=== PATIENT | male | born 1985 | race American Indian/Alaskan Native ===

== ENCOUNTER 2017-11-29 14:31 | Inpatient (IN) | payer OTHER ==
[2017-11-29] MEDS ORDERED: ASPIRIN PO ONE (14:46)
[2017-11-29 15:54] LABS: BUN/Creatinine Ratio 10; Blood Urea Nitrogen 7 mg/dL (9-20); Calcium 9.4 mg/dL (8.4-10.2); Hemolysis Index 0
[2017-11-29 16:00] LABS: Basophils % (Auto) 0.2 % (0.0-1.8); Eosinophils # (Auto) 0.2 K/mm3 (0.0-0.4); Eosinophils % (Auto) 2.3 % (0.0-4.3); Hematocrit 33.4 % (35.5-45.6); Hemoglobin 10.2 gm/dl (11.8-15.2); Lymphocytes # (Auto) 2.4 K/mm3 (1.2-5.4); Lymphocytes % (Auto) 36.3 % (13.4-35.0); Mean Corpuscular HGB Conc 31 % (32-34); Mean Corpuscular Volume 75 fl (84-94); Monocytes # (Auto) 0.5 K/mm3 (0.0-0.8); Monocytes % (Auto) 7.6 % (0.0-7.3); Platelet Count 298 K/mm3 (140-440); Red Blood Count 4.45 M/mm3 (3.65-5.03); Red Cell Distribution Width 17.6 % (13.2-15.2)
[2017-11-29 16:03] LABS: Mean Corpuscular Hemoglobin 23 pg (28-32)
--- NOTE | 2017-11-29 16:44 | Emergency Department Report ---
ED Chest Pain HPI - General Chief Complaint: Chest Pain Stated Complaint: CHEST PAIN, DIZZINESS ON &OFF Time Seen by Provider: 11/29/17 16:11 Source: patient Mode of arrival: Ambulatory Limitations: No Limitations - History of Present Illness Initial Comments: 32-year-old male presents to the emergency department with complaint of a squeezing pain to the left side of the chest has been going on since about 2:30 this morning. He went to sleep trying to sleep off the discomfort but woke up with it as well. It started radiating to the left arm which is when he was brought in. It is associated with some shortness of breath but he denies any fever, nausea, vomiting or diaphoresis. Per the patient, he has a history of a "mild heart attack." He is not on any medications. He otherwise has a past medical history of anxiety. He denies any tobacco or illicit drug use or abuse. No recent travel or sick contacts at home. - Related Data Home Medications Medication Instructions Recorded Confirmed Last Taken No Known Home Medications [No 08/22/14 11/29/17 Unknown Reported Home Medications] Allergies Allergy/AdvReac Type Severity Reaction Status Date / Time No Known Allergies Allergy Verified 03/12/16 14:09 Heart Score - HEART Score History: Moderately suspicious EKG: Normal Age: < 45 Risk factors: 1-2 risk factors Troponin: < normal limit HEART Score: 2 - Critical Actions Critical Actions: 0-3 pts:0.9-1.7%risk of adverse cardiac event.Candidate for discharge ED Review of Systems ROS: Stated complaint: CHEST PAIN, DIZZINESS ON &OFF Other details as noted in HPI Comment: All other systems reviewed and negative Constitutional: denies: chills, fever Eyes: denies: eye pain, eye discharge, vision change ENT: denies: ear pain, throat pain Respiratory: shortness of breath. denies: cough Cardiovascular: chest pain. denies: palpitations Gastrointestinal: denies: abdominal pain, nausea, diarrhea Genitourinary: denies: urgency, dysuria Musculoskeletal: denies: back pain, joint swelling Skin: denies: rash, lesions Neurological: denies: headache, weakness, paresthesias ED Past Medical Hx - Past Medical History Previous Medical History?: Yes Hx Psychiatric Treatment: Yes (ANXIETY) Additional medical history: MORBID OBESITY, Hx of AZ - Surgical History Past Surgical History?: No Additional Surgical History: Tonsillectomy - Social History Smoking Status: Never Smoker Substance Use Type: None - Medications Home Medications: Home Medications Medication Instructions Recorded Confirmed Last Taken Type No Known Home Medications [No 08/22/14 11/29/17 Unknown History Reported Home Medications] ED Physical Exam - General Limitations: No Limitations - Other Other exam information: GENERAL: The patient is well-developed well-nourished. HENT: Normocephalic. Atraumatic. Patient has moist mucous membranes. EYES: Extraocular motions are intact. Pupils equal reactive to light bilaterally. NECK: Supple. Trachea is midline. CHEST/LUNGS: Clear to auscultation. There is no respiratory distress noted. HEART/CARDIOVASCULAR: Regular. There is no tachycardia. There is no murmur. ABDOMEN: Abdomen is soft, nontender. Patient has normal bowel sounds. Morbidly obese habitus. SKIN: Skin is warm and dry. NEURO: The patient is awake, alert, and oriented. The patient is cooperative. The patient has no focal neurologic deficits. The patient has normal speech. MUSCULOSKELETAL: There is no tenderness or deformity. There is no limitation range of motion. There is no evidence of acute injury. ED Course Vital Signs 11/29/17 11/29/17 11/29/17 14:43 16:10 16:16 Temperature 98.2 F Pulse Rate 88 92 H 94 H Respiratory 18 13 Rate Blood Pressure 128/77 116/64 Blood Pressure [Left] O2 Sat by Pulse 98 99 Oximetry 11/29/17 11/29/17 11/29/17 16:30 16:46 17:00 Temperature Pulse Rate 93 H 87 79 Respiratory 20 22 15 Rate Blood Pressure 116/64 116/64 128/59 Blood Pressure [Left] O2 Sat by Pulse 96 94 92 Oximetry 11/29/17 11/29/17 11/29/17 17:16 17:30 17:46 Temperature Pulse Rate 71 Respiratory 12 12 13 Rate Blood Pressure 128/59 128/59 128/59 Blood Pressure [Left] O2 Sat by Pulse 96 97 Oximetry 11/29/17 11/29/17 11/29/17 18:00 18:28 18:30 Temperature Pulse Rate 77 87 85 Respiratory 14 17 17 Rate Blood Pressure 116/59 116/59 116/59 Blood Pressure [Left] O2 Sat by Pulse 85 88 98 Oximetry 07/11/29/17 11/29/17 18:46 19:00 19:16 Temperature Pulse Rate 82 78 98 H Respiratory 17 16 19 Rate Blood Pressure 116/59 116/59 116/59 Blood Pressure [Left] O2 Sat by Pulse 97 90 97 Oximetry 11/29/17 11/29/17 11/29/17 19:30 19:46 20:00 Temperature Pulse Rate Respiratory Rate Blood Pressure 116/59 131/100 131/100 Blood Pressure [Left] O2 Sat by Pulse 98 95 81 L Oximetry 11/29/17 11/29/17 11/29/17 20:16 20:30 20:46 Temperature Pulse Rate Respiratory Rate Blood Pressure 131/100 131/100 131/100 Blood Pressure [Left] O2 Sat by Pulse 87 88 94 Oximetry 11/29/17 11/29/17 11/29/17 21:00 21:16 21:36 Temperature Pulse Rate Respiratory Rate Blood Pressure 131/100 131/100 131/100 Blood Pressure [Left] O2 Sat by Pulse 82 L 92 97 Oximetry 11/29/17 11/29/17 11/29/17 21:46 22:00 22:16 Temperature Pulse Rate Respiratory Rate Blood Pressure 131/100 131/100 131/100 Blood Pressure [Left] O2 Sat by Pulse 76 L 100 94 Oximetry 11/29/17 11/29/17 11/29/17 22:30 22:46 23:00 Temperature Pulse Rate Respiratory Rate Blood Pressure 131/100 131/100 131/100 Blood Pressure [Left] O2 Sat by Pulse 100 100 97 Oximetry 11/29/17 11/30/17 23:16 00:08 Temperature Pulse Rate 97 H Respiratory 20 Rate Blood Pressure 131/100 Blood Pressure 140/92 [Left] O2 Sat by Pulse 100 99 Oximetry ANKITA score - Ankita Score Age > 65: (0) No 3 or more CAD Risk Factors: (0) No 2 or more Angina events in past 24 hrs: (1) Yes Known CAD with more than 50% Stenosis: (0) No Elevated Cardiac Markers: (0) No ST Deviation Greater than 0.5mm: (0) No ED Medical Decision Making - Lab Data Result diagrams: 11/29/17 15:18 11/29/17 15:18 - EKG Data -: EKG Interpreted by [place] EKG shows normal: sinus rhythm, axis, intervals, QRS complexes, ST-T waves Rate: normal - EKG Data When compared to previous EKG there are: previous EKG unavailable Interpretation: normal EKG, unchanged when compared t (08/22/14) - Radiology Data Radiology results: report reviewed, image reviewed interpreted by me: Chest x-ray does not show any acute process. There are no pleural effusions, obvious pneumonia and there is no pneumothorax. EXAM: CT ANGIO CHEST HISTORY: CP, elevated dimer TECHNIQUE: Spiral CTA of the chest after the uneventful administration of IV contrast. Multiplanar reformations. 100 mL Omnipaque IV. PRIORS: None. FINDINGS: Chest: Very small and eccentric focus of incomplete enhancement or possible filling defect noted in left interlobar pulmonary artery (series 2: 61-62), nonspecific. Remainder of main and bilateral proximal pulmonary arteries are normally opacified without endoluminal filling defects. No apparent aneurysm, pseudoaneurysm or aortic dissection. No significant mediastinal or hilar lymph node enlargement. Prominent or mildly enlarged lymph nodes in left axillary region may be reactive. Lungs show no discrete parenchymal mass, focal consolidation or pleural effusions. No apparent pneumothorax. Gallstone noted without significant pericholecystic fluid collection. Remainder of visualized upper abdomen grossly unremarkable. IMPRESSION: 1. Very small focus of incomplete enhancement or possible filling defect in the left interlobar pulmonary artery may be artifactual or represent scarring, although small pulmonary embolus not completely excluded. Clinical correlation and followup may be warranted. 2. No other evidence of large vessel or central pulmonary emboli. No acute consolidation. 3. Cholelithiasis. Transcribed By: [facility] Dictated By: KOREY ALLRED MD Electronically Authenticated By: KOREY ALLRED MD Signed Date/Time: 11/29/172004 - Medical Decision Making Patient presents with some chest pain, 9 out of 10 to start. The first 2 troponins negative. Patient had a slightly elevated equivocal d-dimer of [address] angiography of the chest was done. It shows a very small focus towards the left interlobar pulmonary artery that could be scarring versus PE versus atelectasis but was seen by the radiologist on multiple cuts. Patient was given some pain medication and has chest pain only came down to a 7 out of 10. He allegedly has some history of a prior "mild heart attack." The patient the patient will be admitted to the hospital for further evaluation and treatment was accepted for admission by the hospitalist, Dr. Cronin. - Differential Diagnosis PE, AZ, dysrhythmia, costochondritis, GERD Critical Care Time: No Critical care attestation.: If time is entered above; I have spent that time in minutes in the direct care of this critically ill patient, excluding procedure time. ED Disposition Clinical Impression: Obstructive sleep apnea Pulmonary embolism Qualifiers: Pulmonary embolism type: other Chronicity: acute Acute cor pulmonale presence: without acute cor pulmonale Qualified Code(s): I26.99 - Other pulmonary embolism without acute cor pulmonale Chest pain Qualifiers: Chest pain type: unspecified Qualified Code(s): R07.9 - Chest pain, unspecified Disposition: OP ADMIT IP TO THIS HOSP Is pt being admited?: Yes Condition: Fair Time of Disposition: 00:18
[2017-11-29] MEDS ORDERED: NORCO 5/325 PO ONE (16:50)
--- NOTE | 2017-11-29 18:04 | XRay Report ---
FINAL REPORT EXAM: XR CHEST 1V AP HISTORY: CP TECHNIQUE: Single, portable chest x-ray. PRIORS: None. FINDINGS: Patient rotated to the right. Cardiac and mediastinal silhouette within normal limits. Lungs are hypoinflated, with patchy bibasilar opacities. No other focal consolidation or apparent pneumothorax. Bony thorax grossly unremarkable. IMPRESSION: 1. Hypoinflation and possible bibasilar atelectasis versus mild infiltrates or postinflammatory change of uncertain etiology or chronicity. Correlate clinically.
[2017-11-29] MEDS ORDERED: ASPIRIN ONE (18:36)
--- NOTE | 2017-11-29 20:09 | Cat Scan Report ---
FINAL REPORT EXAM: CT ANGIO CHEST HISTORY: CP, elevated dimer TECHNIQUE: Spiral CTA of the chest after the uneventful administration of IV contrast. Multiplanar reformations. 100 mL Omnipaque IV. PRIORS: None. FINDINGS: Chest: Very small and eccentric focus of incomplete enhancement or possible filling defect noted in left interlobar pulmonary artery (series 2: 61-62), nonspecific. Remainder of main and bilateral proximal pulmonary arteries are normally opacified without endoluminal filling defects. No apparent aneurysm, pseudoaneurysm or aortic dissection. No significant mediastinal or hilar lymph node enlargement. Prominent or mildly enlarged lymph nodes in left axillary region may be reactive. Lungs show no discrete parenchymal mass, focal consolidation or pleural effusions. No apparent pneumothorax. Gallstone noted without significant pericholecystic fluid collection. Remainder of visualized upper abdomen grossly unremarkable. IMPRESSION: 1. Very small focus of incomplete enhancement or possible filling defect in the left interlobar pulmonary artery may be artifactual or represent scarring, although small pulmonary embolus not completely excluded. Clinical correlation and followup may be warranted. 2. No other evidence of large vessel or central pulmonary emboli. No acute consolidation. 3. Cholelithiasis.
[2017-11-29] MEDS ORDERED: ELIQUIS PO ONE (20:12)
[2017-11-29] MEDS ORDERED: PROVENTIL IH PRN (22:57)
[2017-11-29] MEDS ORDERED: ZOFRAN IV PRN (22:57)
[2017-11-29] MEDS ORDERED: SODIUM CHLORIDE FLUSH SYRINGE 10 ML IV PRN (22:57)
[2017-11-29] MEDS ORDERED: TYLENOL PO PRN (22:57)
--- NOTE | 2017-11-29 23:00 | History and Physical Report ---
History of Present Illness Date of examination: 11/29/17 History of present illness: 32-year-old man with a history of obesity causing emergency room complaining of chest pain located in the left chest which she described as a squeezing pain that started this morning. Pain is minimal and nature every 5 minutes , intensity 6/10, no radiation, he cannot identify exacerbating or relieving factors. Admits to recent travel to [place] one week ago. No nausea vomiting, diaphoresis, shortness of breath Review of systems Constitutional: no weight loss, chills, fever Ears, eyes, nose, mouth and throat: no nasal congestion, no nasal discharge, no sinus pressure, no vision change, no red eye. Neck: No neck pain or rigidity. Cardiovascular: no palpitations Respiratory: no cough, shortness of breath Gastrointestinal: no abdominal pain hematochezia Genitourinary : no frequency , no hematuria Musculoskeletal: no joint swelling or muscle ache Integumentary: no rash, no pruritis Neurological: no parathesias, no numbness, no focal weakness Endocrine: no cold or heat intolerance, no polyuria or polydipsia Hematologic/Lymphatic: no easy bruising, no easy bleeding, no gland swelling Allergic/Immunologic: no urticaria, no angioedema. PAST MEDICAL HISTORY: None PAST SURGICAL HISTORY: None SOCIAL HISTORY: No alcohol, no drugs, tobacco FAMILY HISTORY: Hypertension Medications and Allergies Allergies Allergy/AdvReac Type Severity Reaction Status Date / Time No Known Allergies Allergy Verified 03/12/16 14:09 Home Medications Medication Instructions Recorded Confirmed Last Taken Type No Known Home Medications [No 08/22/14 11/29/17 Unknown History Reported Home Medications] Exam - Physical Exam Narrative exam: Gen. appearance: Patient lying in bed, no apparent distress HEENT: Normocephalic, atraumatic, pupils equally round and reactive to light, extraocular movement intact, and no sclericterus,. No JVD or thyromegaly or nodule,neck supple, no carotid bruit ,mucous membranes moist, no exudate or erythema Heart: S1, S2, regular rate and rhythm Lungs: Clear to auscultation bilaterally, breathing comfortable Abdomen: Positive bowel sounds, non tenderess , nondistended, no organomegaly Extremity: No edema, cyanosis, clubbing Skin: No rash, nodules, warm, dry Neuro: Oriented 3, cranial nerves II-12 intact, speech is fluent, motor and sensory intact - Constitutional Vitals: Temp Pulse Resp BP Pulse Ox 98.2 F 98 H 19 116/59 98 11/29/17 14:43 11/29/17 19:16 11/29/17 19:16 11/29/17 19:30 11/29/17 19:30 Results - Labs CBC & Chem 7: 12/01/17 01:10 11/30/17 04:50 Labs: Abnormal lab results 11/29/17 11/29/17 11/29/17 Range/Units 15:18 15:18 16:32 Hgb 10.2 L (11.8-15.2) gm/dl Hct 33.4 L (35.5-45.6) % MCV 75 L (84-94) fl MCH 23 L (28-32) pg MCHC 31 L (32-34) % RDW 17.6 H (13.2-15.2) % Lymph % (Auto) 36.3 H (13.4-35.0) % [place] % (Auto) 7.6 H (0.0-7.3) % D-Dimer 272.05 H (0-234) ng/mlDDU BUN 7 L (9-20) mg/dL Creatinine 0.7 L (0.8-1.5) mg/dL Glucose 133 H (75-100) mg/dL - Imaging and Cardiology Chest x-ray: report reviewed CT scan - chest: report reviewed Assessment and Plan Assessment Acute pulmonary emboli Obesity Plan Admit to medicine Patient was started on Eliquis Check Doppler of the lower extremity CPAP at night, patient with clinical diagnosis of sleep apnea DVT prophylaxis
[2017-11-30 05:26] LABS: Basophils % (Auto) 0.3 % (0.0-1.8); Eosinophils # (Auto) 0.2 K/mm3 (0.0-0.4); Eosinophils % (Auto) 2.2 % (0.0-4.3); Hematocrit 32.3 % (35.5-45.6); Hemoglobin 9.9 gm/dl (11.8-15.2); Lymphocytes # (Auto) 2.7 K/mm3 (1.2-5.4); Lymphocytes % (Auto) 36.9 % (13.4-35.0); Mean Corpuscular HGB Conc 31 % (32-34); Mean Corpuscular Volume 75 fl (84-94); Monocytes # (Auto) 0.6 K/mm3 (0.0-0.8); Monocytes % (Auto) 7.6 % (0.0-7.3); Platelet Count 271 K/mm3 (140-440); Red Blood Count 4.33 M/mm3 (3.65-5.03); Red Cell Distribution Width 17.3 % (13.2-15.2)
[2017-11-30 05:39] LABS: BUN/Creatinine Ratio 12; Blood Urea Nitrogen 6 mg/dL (9-20); Calcium 8.7 mg/dL (8.4-10.2); Hemolysis Index 0
[2017-11-30 05:59] LABS: Mean Corpuscular Hemoglobin 23 pg (28-32)
--- NOTE | 2017-11-30 08:19 | Progress Note ---
Assessment and Plan Assessment and plan: Assessment Acute Pulm Embolism Severe Obesity 2/2 poor food choices Atypical Right sided chest pain Tobacco use disorder Suspect TONIA/OHS Anemia chronic Hyperglycemia r/o DM II Full code status Signs of Metabolic syndrome Plan change to Eliquis 10mg BID x 7 days then 5mg BID after SW to assist with Eliquis Counseled weight loss, diet modification A1c in am Pulm consult and eval Outpt Sleep study and if high, wiil need metformin, dm educator Cover Remover consult if not already done bleeding precautions at all times am labs d/w pt extensively Further pt mgt per hospital course Disposition Plan: pulm eval, nutrition eval, then discharge in 1 day Total Time Spent with Patient (Minutes): More than 35 mins spent History Interval history: Admitted with Pulm Embolism. Pt seen and exam. Lives mostly a sedentary lifestyle Denies h/o PE or DVT Denies any more change pains. Eliquis has been changed to 10mg PO BID x 7 days and then decrease to 5mg BID Pt has no improvement. Will get SW to assist with the Eliquis program/ Coupon Risk of bleeding while on Eliquis d/w pt extensively, and pt advised to report any such bleeding. Pt was AO x 3 and voiced understanding to d/w him. Counseled extensively about need for weight loss, better diet choices etc Hospitalist Physical - Constitutional Vitals: Temp Pulse Resp BP Pulse Ox 98.2 F 97 H 20 140/92 99 11/29/17 14:43 11/30/17 00:08 11/30/17 00:08 11/30/17 00:08 11/30/17 00:08 General appearance: Present: no acute distress, obese, other - EENT Eyes: Present: PERRL, EOM intact ENT: hearing intact, clear oral mucosa, poor dentition - Neck Neck: Present: supple, normal ROM - Respiratory Respiratory: bilateral: CTA, negative: diminished (due to body habitus), rales, rhonchi, wheezing - Cardiovascular Rhythm: regular Heart Sounds: Present: S1 & S2 - Extremities Extremities: pulses intact, pulses symmetrical, normal temperature Extremity abnormal: edema - Abdominal General gastrointestinal: soft, non-distended, normal bowel sounds, other (obese ) - Integumentary Integumentary: Present: clear, warm, dry - Psychiatric Psychiatric: appropriate mood/affect, intact judgment & insight, cooperative - Neurologic Neurologic: CNII-XII intact, moves all extremities - Allied Health Allied health notes reviewed: nursing Results - Labs CBC & Chem 7: 11/30/17 04:50 11/30/17 04:50 Labs: Laboratory Last Values WBC 7.4 K/mm3 (4.5-11.0) 11/30/17 04:50 RBC 4.33 M/mm3 (3.65-5.03) 11/30/17 04:50 Hgb 9.9 gm/dl (11.8-15.2) L 11/30/17 04:50 Hct 32.3 % (35.5-45.6) L 11/30/17 04:50 MCV 75 fl (84-94) L 11/30/17 04:50 MCH 23 pg (28-32) L 11/30/17 04:50 MCHC 31 % (32-34) L 11/30/17 04:50 RDW 17.3 % (13.2-15.2) H 11/30/17 04:50 Plt Count 271 K/mm3 (140-440) 11/30/17 04:50 Lymph % (Auto) 36.9 % (13.4-35.0) H 11/30/17 04:50 [place] % (Auto) 7.6 % (0.0-7.3) H 11/30/17 04:50 Eos % (Auto) 2.2 % (0.0-4.3) 11/30/17 04:50 Baso % (Auto) 0.3 % (0.0-1.8) 11/30/17 04:50 Lymph # 2.7 K/mm3 (1.2-5.4) 11/30/17 04:50 [place] # 0.6 K/mm3 (0.0-0.8) 11/30/17 04:50 Eos # 0.2 K/mm3 (0.0-0.4) 11/30/17 04:50 Baso # 0.0 K/mm3 (0.0-0.1) 11/30/17 04:50 Seg Neutrophils % 53.0 % (40.0-70.0) 11/30/17 04:50 Seg Neutrophils # 3.9 K/mm3 (1.8-7.7) 11/30/17 04:50 D-Dimer 272.05 ng/mlDDU (0-234) H 11/29/17 16:32 Sodium 141 mmol/L (137-145) 11/30/17 04:50 Potassium 3.7 mmol/L (3.6-5.0) 11/30/17 04:50 Chloride 102.0 mmol/L (98-107) 11/30/17 04:50 Carbon Dioxide 30 mmol/L (22-30) 11/30/17 04:50 Anion Gap 13 mmol/L 11/30/17 04:50 BUN 6 mg/dL (9-20) L 11/30/17 04:50 Creatinine 0.5 mg/dL (0.8-1.5) L 11/30/17 04:50 Estimated GFR > 60 ml/min 11/30/17 04:50 BUN/Creatinine Ratio 12 % 11/30/17 04:50 Glucose 196 mg/dL (75-100) H 11/30/17 04:50 Calcium 8.7 mg/dL (8.4-10.2) 11/30/17 04:50 Troponin T < 0.010 ng/mL (0.00-0.029) 11/29/17 20:44 NT-Pro-B Natriuret Pep 50.79 pg/mL (0-450) 11/29/17 16:32 - Imaging and Cardiology Chest x-ray: report reviewed CT scan - chest: report reviewed Venous US: report reviewed
[2017-11-30] MEDS ORDERED: ELIQUIS PO SCH (10:00)
[2017-11-30] MEDS: SODIUM CHLORIDE FLUSH SYRINGE 10 ML IV SCH ×2 (12:08→22:50)
[2017-11-30] MEDS: ELIQUIS PO SCH ×2 (12:08→22:50)
[2017-12-01] MEDS ORDERED: DEEP SEA NS PRN (02:50)
[2017-12-01 03:32] LABS: Hemoglobin 9.8 gm/dl (11.8-15.2); Mean Corpuscular HGB Conc 31 % (32-34); Mean Corpuscular Volume 75 fl (84-94); Platelet Count 274 K/mm3 (140-440); Red Blood Count 4.28 M/mm3 (3.65-5.03); Red Cell Distribution Width 17.6 % (13.2-15.2)
[2017-12-01 03:34] LABS: Mean Corpuscular Hemoglobin 23 pg (28-32)
--- NOTE | 2017-12-01 10:22 | Consultation ---
History of Present Illness Consult date: 12/01/17 Requesting physician: LUCIANO LUJAN Reason for consult: pulmonary embolism (Equivocal) History of present illness: PULMONARY/CCM CONSULT NOTE (Full dictation # [id number]) Please see dictated notes for full details Medications and Allergies Allergies Allergy/AdvReac Type Severity Reaction Status Date / Time No Known Allergies Allergy Verified 03/12/16 14:09 Home Medications Medication Instructions Recorded Confirmed Last Taken Type No Known Home Medications [No 08/22/14 11/29/17 Unknown History Reported Home Medications] Active Meds: Active Medications Acetaminophen (Tylenol) 650 mg PO Q4H PRN PRN Reason: Pain MILD(1-3)/Fever >100.5/NELSON Last Admin: 12/01/17 02:36 Dose: 650 mg Albuterol (Proventil) 2.5 mg IH Q3HRT PRN PRN Reason: Shortness Of Breath Apixaban (Eliquis) 10 mg PO Q12HR [id number]; Protocol Last Admin: 11/30/17 22:50 Dose: 10 mg Ondansetron HCl (Zofran) 4 mg IV Q8H PRN PRN Reason: Nausea And Vomiting Sodium Chloride (Sodium Chloride Flush Syringe 10 Ml) 10 ml IV BID KWADWO Last Admin: 11/30/17 22:50 Dose: 10 ml Sodium Chloride (Sodium Chloride Flush Syringe 10 Ml) 10 ml IV PRN PRN PRN Reason: LINE FLUSH Sodium Chloride ([place]) 2 spray NS PRN PRN PRN Reason: Dry Nasal Passages Physical Examination Vital signs: Vital Signs Temp Pulse BP Pulse Ox 98.2 F 88 128/77 98 11/29/17 14:43 11/29/17 14:43 11/29/17 14:43 11/29/17 14:43 Results - Laboratory Findings CBC and BMP: 12/05/17 06:20 12/05/17 06:20 PT/INR, D-dimer D-Dimer 272.05 ng/mlDDU (0-234) H 11/29/17 16:32 Abnormal lab findings: Abnormal Labs 11/29/17 11/29/17 11/29/17 15:18 15:18 16:32 Hgb 10.2 L Hct 33.4 L MCV 75 L MCH 23 L MCHC 31 L RDW 17.6 H Lymph % (Auto) 36.3 H [place] % (Auto) 7.6 H D-Dimer 272.05 H BUN 7 L Creatinine 0.7 L Glucose 133 H 11/30/17 11/30/17 12/01/17 04:50 04:50 01:10 Hgb 9.9 L 9.8 L Hct 32.3 L 32.0 L MCV 75 L 75 L MCH 23 L 23 L MCHC 31 L 31 L RDW 17.3 H 17.6 H Lymph % (Auto) 36.9 H [place] % (Auto) 7.6 H D-Dimer BUN 6 L Creatinine 0.5 L Glucose 196 H
[2017-12-01] MEDS: ELIQUIS PO SCH ×2 (10:23→22:32)
[2017-12-01] MEDS: SODIUM CHLORIDE FLUSH SYRINGE 10 ML IV SCH ×2 (10:25→22:33)
[2017-12-01] MEDS ORDERED: MORPHINE IV PRN (12:12)
--- NOTE | 2017-12-01 12:53 | Progress Note ---
Assessment and Plan Assessment and plan: Suspected Acute Pulm Embolism -cont eliquix -CTA chest suspicious for PE -Patient unable to get VQ scan due to body habitus -Pulmonology following Atypical Right sided chest pain, probably secondary to the PE -serial troponin levels negative Dyspnea on exertion -cont PRN neb tx -will need home oxygen evaluation Morbid obesity with BMI of 55.8 -Weight loss recommended Tobacco abuse -Counseled on cessation Suspected TONIA/OHS -Patient will need outpatient sleep study -Continue CPAP at night Anemia, chronic -H&H stable Hyperglycemia r/o DM II -A1c pending Disposition: Discharge patient when clinically stable History Interval history: Patient has sob at rest and with mild exertion. Hospitalist Physical - Constitutional Vitals: Temp Pulse Resp BP Pulse Ox 98.4 F 81 22 148/75 95 12/01/17 08:41 12/01/17 08:41 12/01/17 08:41 12/01/17 08:41 12/01/17 08:44 General appearance: Present: obese, other (mildly tachypneic) - EENT Eyes: Present: PERRL, EOM intact ENT: hearing intact, clear oral mucosa - Neck Neck: Present: supple - Respiratory Respiratory: bilateral: CTA - Cardiovascular Rhythm: regular Heart Sounds: Present: S1 & S2 - Extremities Extremity abnormal: edema (in BLE) - Abdominal General gastrointestinal: soft, non-tender, normal bowel sounds - Neurologic Neurologic: CNII-XII intact Results - Labs CBC & Chem 7: 12/01/17 01:10 11/30/17 04:50 Labs: Laboratory Last Values WBC 7.1 K/mm3 (4.5-11.0) 12/01/17 01:10 RBC 4.28 M/mm3 (3.65-5.03) 12/01/17 01:10 Hgb 9.8 gm/dl (11.8-15.2) L 12/01/17 01:10 Hct 32.0 % (35.5-45.6) L 12/01/17 01:10 MCV 75 fl (84-94) L 12/01/17 01:10 MCH 23 pg (28-32) L 12/01/17 01:10 MCHC 31 % (32-34) L 12/01/17 01:10 RDW 17.6 % (13.2-15.2) H 12/01/17 01:10 Plt Count 274 K/mm3 (140-440) 12/01/17 01:10 Lymph % (Auto) 36.9 % (13.4-35.0) H 11/30/17 04:50 [place] % (Auto) 7.6 % (0.0-7.3) H 11/30/17 04:50 Eos % (Auto) 2.2 % (0.0-4.3) 11/30/17 04:50 Baso % (Auto) 0.3 % (0.0-1.8) 11/30/17 04:50 Lymph # 2.7 K/mm3 (1.2-5.4) 11/30/17 04:50 [place] # 0.6 K/mm3 (0.0-0.8) 11/30/17 04:50 Eos # 0.2 K/mm3 (0.0-0.4) 11/30/17 04:50 Baso # 0.0 K/mm3 (0.0-0.1) 11/30/17 04:50 Seg Neutrophils % 53.0 % (40.0-70.0) 11/30/17 04:50 Seg Neutrophils # 3.9 K/mm3 (1.8-7.7) 11/30/17 04:50 D-Dimer 272.05 ng/mlDDU (0-234) H 11/29/17 16:32 Sodium 141 mmol/L (137-145) 11/30/17 04:50 Potassium 3.7 mmol/L (3.6-5.0) 11/30/17 04:50 Chloride 102.0 mmol/L (98-107) 11/30/17 04:50 Carbon Dioxide 30 mmol/L (22-30) 11/30/17 04:50 Anion Gap 13 mmol/L 11/30/17 04:50 BUN 6 mg/dL (9-20) L 11/30/17 04:50 Creatinine 0.5 mg/dL (0.8-1.5) L 11/30/17 04:50 Estimated GFR > 60 ml/min 11/30/17 04:50 BUN/Creatinine Ratio 12 % 11/30/17 04:50 Glucose 196 mg/dL (75-100) H 11/30/17 04:50 Calcium 8.7 mg/dL (8.4-10.2) 11/30/17 04:50 Troponin T < 0.010 ng/mL (0.00-0.029) 11/29/17 20:44 NT-Pro-B Natriuret Pep 50.79 pg/mL (0-450) 11/29/17 16:32
[2017-12-02] MEDS: ELIQUIS PO SCH ×2 (09:41→22:45)
[2017-12-02] MEDS: SODIUM CHLORIDE FLUSH SYRINGE 10 ML IV SCH ×2 (09:42→22:30)
--- NOTE | 2017-12-02 14:21 | Progress Note ---
Assessment and Plan Assessment and plan: Abnormal Rhythm Strip Pulm Embolism Suspected Sleep Apnea Class III Obesity Plan cardio consult close tele monitoring bleeding precautions f/u 2D Echo report am labs further pt mgt per hospital course 30 mins Disposition Plan: cardio eval Total Time Spent with Patient (Minutes): 30 mins History Interval history: Pt seen and exam notified by RN of the Abnormal Rhythm strip with long pauses. Reviewed pt's strips, and pt has had multiple episodes of Long pauses, likely related to his sleep apnea Denies any bleeding problems Hospitalist Physical - Constitutional Vitals: Temp Pulse Resp BP Pulse Ox 98.9 F 86 20 104/58 94 12/02/17 05:19 12/02/17 08:42 12/02/17 08:42 12/02/17 08:42 12/02/17 08:42 General appearance: Present: no acute distress, obese, malodorous, other ( mildly tachypneic) - EENT Eyes: Present: EOM intact ENT: hearing intact, clear oral mucosa, poor dentition - Neck Neck: Present: supple, normal ROM, other (short and obese) - Respiratory Respiratory: bilateral: CTA (distant AE due to body habitus), negative: rales, rhonchi - Cardiovascular Rhythm: regular Heart Sounds: Present: S1 & S2 - Extremities Extremities: No edema, normal temperature, normal color - Abdominal General gastrointestinal: soft, non-tender, non-distended, normal bowel sounds - Integumentary Integumentary: Present: clear, warm, dry - Psychiatric Psychiatric: appropriate mood/affect, intact judgment & insight, cooperative - Neurologic Neurologic: CNII-XII intact, moves all extremities - Allied Health Allied health notes reviewed: nursing Results - Labs CBC & Chem 7: 12/01/17 01:10 11/30/17 04:50 Labs: Laboratory Last Values WBC 7.1 K/mm3 (4.5-11.0) 12/01/17 01:10 RBC 4.28 M/mm3 (3.65-5.03) 12/01/17 01:10 Hgb 9.8 gm/dl (11.8-15.2) L 12/01/17 01:10 Hct 32.0 % (35.5-45.6) L 12/01/17 01:10 MCV 75 fl (84-94) L 12/01/17 01:10 MCH 23 pg (28-32) L 12/01/17 01:10 MCHC 31 % (32-34) L 12/01/17 01:10 RDW 17.6 % (13.2-15.2) H 12/01/17 01:10 Plt Count 274 K/mm3 (140-440) 12/01/17 01:10 Lymph % (Auto) 36.9 % (13.4-35.0) H 11/30/17 04:50 [place] % (Auto) 7.6 % (0.0-7.3) H 11/30/17 04:50 Eos % (Auto) 2.2 % (0.0-4.3) 11/30/17 04:50 Baso % (Auto) 0.3 % (0.0-1.8) 11/30/17 04:50 Lymph # 2.7 K/mm3 (1.2-5.4) 11/30/17 04:50 [place] # 0.6 K/mm3 (0.0-0.8) 11/30/17 04:50 Eos # 0.2 K/mm3 (0.0-0.4) 11/30/17 04:50 Baso # 0.0 K/mm3 (0.0-0.1) 11/30/17 04:50 Seg Neutrophils % 53.0 % (40.0-70.0) 11/30/17 04:50 Seg Neutrophils # 3.9 K/mm3 (1.8-7.7) 11/30/17 04:50 D-Dimer 272.05 ng/mlDDU (0-234) H 11/29/17 16:32 Sodium 141 mmol/L (137-145) 11/30/17 04:50 Potassium 3.7 mmol/L (3.6-5.0) 11/30/17 04:50 Chloride 102.0 mmol/L (98-107) 11/30/17 04:50 Carbon Dioxide 30 mmol/L (22-30) 11/30/17 04:50 Anion Gap 13 mmol/L 11/30/17 04:50 BUN 6 mg/dL (9-20) L 11/30/17 04:50 Creatinine 0.5 mg/dL (0.8-1.5) L 11/30/17 04:50 Estimated GFR > 60 ml/min 11/30/17 04:50 BUN/Creatinine Ratio 12 % 11/30/17 04:50 Glucose 196 mg/dL (75-100) H 11/30/17 04:50 Hemoglobin A1c 7.7 % (4-6) H 12/01/17 01:10 Calcium 8.7 mg/dL (8.4-10.2) 11/30/17 04:50 Troponin T < 0.010 ng/mL (0.00-0.029) 11/29/17 20:44 NT-Pro-B Natriuret Pep 50.79 pg/mL (0-450) 11/29/17 16:32 - Imaging and Cardiology CT scan - chest: report reviewed Imaging and Cardiology: 2D Echo Venous doppler
--- NOTE | 2017-12-02 17:31 | Consultation ---
History of Present Illness Consult date: 12/02/17 Consult reason: chest pain History of present illness: The patient is a 32-year-old man with a history of morbid obesity, currently weighs a reported 400 pounds. He has obstructive sleep apnea, and admits to poor compliance with his home CPAP therapy. He presents to the hospital with atypical, poorly characterized nonexertional chest pain. There is no unusual shortness of breath, no palpitations and no lower extremity edema. Workup of the chest pain so far: Twelve-lead EKG was normal sinus rhythm, normal ECG. Serial cardiac troponin levels were normal 3. Chest x-ray was normal cardiac silhouette, clear lungs, no heart failure. Echocardiogram done today demonstrates normal left ventricular systolic function with ejection fraction 55%, borderline mild concentric left ventricular hypertrophy. No significant valvular lesions. Right-sided chambers were normal in size. A CTA of the chest reported equivocal findings of small vessel pulmonary embolism. While on telemetry, the patient was noted during the night and into this morning with intermittent pauses of sinus arrest, the longest of which was 3.6 seconds. These episodes were asymptomatic, and the patient was reported to be asleep during these occurrences. Past History Past Medical History: other (morbid obesity, obstructive sleep apnea) Medications and Allergies Allergies Allergy/AdvReac Type Severity Reaction Status Date / Time No Known Allergies Allergy Verified 03/12/16 14:09 Home Medications Medication Instructions Recorded Confirmed Last Taken Type No Known Home Medications [No 08/22/14 11/29/17 Unknown History Reported Home Medications] Active Meds: Active Medications Acetaminophen (Tylenol) 650 mg PO Q4H PRN PRN Reason: Pain MILD(1-3)/Fever >100.5/NELSON Last Admin: 12/01/17 02:36 Dose: 650 mg Albuterol (Proventil) 2.5 mg IH Q3HRT PRN PRN Reason: Shortness Of Breath Apixaban (Eliquis) 10 mg PO Q12HR KWADWO; Protocol Stop: 12/06/17 22:01 Last Admin: 12/02/17 09:41 Dose: 10 mg Apixaban (Eliquis) 5 mg PO Q12HR KWADWO; Protocol Morphine Sulfate (Morphine) 2 mg IV Q4H PRN PRN Reason: Pain, Moderate (4-6) Ondansetron HCl (Zofran) 4 mg IV Q8H PRN PRN Reason: Nausea And Vomiting Sodium Chloride (Sodium Chloride Flush Syringe 10 Ml) 10 ml IV BID KWADWO Last Admin: 12/02/17 09:42 Dose: 10 ml Sodium Chloride (Sodium Chloride Flush Syringe 10 Ml) 10 ml IV PRN PRN PRN Reason: LINE FLUSH Sodium Chloride ([place]) 2 spray NS PRN PRN PRN Reason: Dry Nasal Passages Review of Systems Cardiovascular: chest pain, lightheadedness, no orthopnea, no palpitations, no rapid/irregular heart beat, no edema, no syncope, no shortness of breath Physical Examination Vital Signs Temp Pulse BP Pulse Ox 98.2 F 88 128/77 98 11/29/17 14:43 11/29/17 14:43 11/29/17 14:43 11/29/17 14:43 General appearance: no acute distress HEENT: Positive: PERRL Neck: Positive: neck supple Cardiac: Positive: Reg Rate and Rhythm Lungs: Positive: Decreased Breath Sounds Neuro: Positive: Grossly Intact Abdomen: Positive: Soft Male genitourinary: Positive: deferred Skin: Positive: Clear Extremities: Absent: edema Results 12/01/17 01:10 11/30/17 04:50 EKG interpretations - Telemetry EKG Rhythm: Sinus Rhythm Assessment and Plan - Patient Problems (1) Chest pain Current Visit: Yes Status: Acute Qualifiers: Chest pain type: unspecified Qualified Code(s): R07.9 - Chest pain, unspecified Plan to address problem: Chest pain is atypical, ECG is normal and cardiac enzymes are normal. His CTA of the chest reports equivocal findings for possible pulmonary embolism. I will defer to pulmonary and internal medicine for further management of pulmonary embolism as etiology of his atypical chest pain. (2) Bradycardia Current Visit: Yes Status: Acute Plan to address problem: Patient's recurrent pauses during sleep are likely manifestation of his severe underlying sleep apnea. Treatment should be directed at optimal management of his sleep apnea including weight control and other specific therapy is as directed by pulmonary medicine.
--- NOTE | 2017-12-02 18:30 | Progress Note ---
Assessment and Plan Patient alert, awake. Sitting in chair.Not using O2 as recommended. Still complaining left sided chest discomfort. No acute respiratory distress.O2 saturation 96%. Patient using CPAP at night. - Patient Problems (1) Pulmonary embolism Current Visit: Yes Status: Acute Qualifiers: Pulmonary embolism type: other Chronicity: acute Acute cor pulmonale presence: without acute cor pulmonale Qualified Code(s): I26.99 - Other pulmonary embolism without acute cor pulmonale Plan to address problem: Patient is on Apixaban. (2) Obstructive sleep apnea Current Visit: Yes Status: Acute Plan to address problem: CPAP during night time. (3) Morbid obesity with BMI of 50.0-59.9, adult Current Visit: Yes Status: Acute Plan to address problem: Recommend to loose weight. Weight reduction diet. Subjective Date of service: 12/02/17 Interval history: Patient alert, awake. Sitting in chair.Not using O2 as recommended. Still complaining left sided chest discomfort. No acute respiratory distress.O2 saturation 96%. Patient using CPAP at night. Objective Vital Signs - 12hr 12/02/17 12/02/17 12/02/17 08:42 11:40 16:52 Temperature 98.1 F 97.9 F Pulse Rate 86 89 90 Respiratory 20 20 18 Rate Blood Pressure 104/58 146/92 Blood Pressure 150/95 [Left] O2 Sat by Pulse 94 97 98 Oximetry Constitutional: no acute distress, alert Eyes: non-icteric ENT: oropharynx moist Neck: supple, no lymphadenopathy Effort: normal Ascultation: Bilateral: diminished breath sounds Cardiovascular: regular rate and rhythm Gastrointestinal: normoactive bowel sounds, soft, non-tender Integumentary: normal Extremities: no cyanosis, no edema Neurologic: normal mental status, non-focal exam, pupils equal and round, CN II- XII normal Psychiatric: mood appropriate CBC and BMP: 12/01/17 01:10 11/30/17 04:50 ABG, PT/INR, D-dimer: PT/INR, D-dimer D-Dimer 272.05 ng/mlDDU (0-234) H 11/29/17 16:32 Abnormal lab findings: Abnormal Labs 11/29/17 11/29/17 11/29/17 15:18 15:18 16:32 Hgb 10.2 L Hct 33.4 L MCV 75 L MCH 23 L MCHC 31 L RDW 17.6 H Lymph % (Auto) 36.3 H [place] % (Auto) 7.6 H D-Dimer 272.05 H BUN 7 L Creatinine 0.7 L Glucose 133 H Hemoglobin A1c 11/30/17 11/30/17 12/01/17 04:50 04:50 01:10 Hgb 9.9 L 9.8 L Hct 32.3 L 32.0 L MCV 75 L 75 L MCH 23 L 23 L MCHC 31 L 31 L RDW 17.3 H 17.6 H Lymph % (Auto) 36.9 H [place] % (Auto) 7.6 H D-Dimer BUN 6 L Creatinine 0.5 L Glucose 196 H Hemoglobin A1c 12/01/17 01:10 Hgb Hct MCV MCH MCHC RDW Lymph % (Auto) [place] % (Auto) D-Dimer BUN Creatinine Glucose Hemoglobin A1c 7.7 H Chest x-ray: report reviewed (Hypoinflation, mild atelectasis or mild infiltrates.), image reviewed CT scan - chest: report reviewed (Small embolus can not rule out.), image reviewed
[2017-12-03 02:28] LABS: Hematocrit 32.8 % (35.5-45.6); Mean Corpuscular HGB Conc 31 % (32-34); Mean Corpuscular Volume 76 fl (84-94); Platelet Count 269 K/mm3 (140-440); Red Cell Distribution Width 17.9 % (13.2-15.2)
[2017-12-03 02:34] LABS: Mean Corpuscular Hemoglobin 23 pg (28-32)
[2017-12-03] MEDS: SODIUM CHLORIDE FLUSH SYRINGE 10 ML IV SCH ×2 (10:57→22:41)
[2017-12-03] MEDS: ELIQUIS PO SCH ×2 (10:57→22:35)
[2017-12-03] MEDS: ANTIVERT PO SCH ×2 (10:57→22:35)
--- NOTE | 2017-12-03 12:54 | Progress Note ---
Assessment and Plan Chest pain is atypical ECG is normal and cardiac enzymes are normal CTA of the chest reports equivocal findings for possible pulmonary embolism Echocardiogram demonstrates normal left ventricular systolic function with ejection fraction 55%, borderline mild concentric left ventricular hypertrophy. No significant valvular lesions. Right-sided chambers were normal in size. Bradycardia recurrent pauses during sleep are likely manifestation of his severe underlying sleep apnea Sleep apnea noncompliant with his Cpap Obese Conservative cardiac management. Subjective Date of service: 12/03/17 Interval history: Patient is resting in bed comfortably. Objective Vital Signs Temp Pulse Resp BP Pulse Ox 12/03/17 04:26 98.3 F 88 18 108/63 92 12/02/17 23:41 98.1 F 92 H 18 123/63 95 12/02/17 20:20 94 H 12/02/17 19:37 98.5 F 94 H 18 112/73 96 12/02/17 16:52 97.9 F 90 18 146/92 98 - Physical Examination General: No Apparent Distress, Other (Obese) HEENT: Positive: PERRL Cardiac: Positive: Reg Rate and Rhythm - Labs and Meds CBC 12/03/17 Range/Units 01:36 WBC 8.2 (4.5-11.0) K/mm3 RBC 4.30 (3.65-5.03) M/mm3 Hgb 10.0 L (11.8-15.2) gm/dl Hct 32.8 L (35.5-45.6) % Plt Count 269 (140-440) K/mm3
--- NOTE | 2017-12-03 13:11 | Progress Note ---
Assessment and Plan Patient alert, awake. Sitting in chair.Not using O2 as recommended. Complaining shortness of breath with cough. No acute respiratory distress.O2 saturation 97%. Patient using CPAP at night. - Patient Problems (1) Pulmonary embolism Current Visit: Yes Status: Acute Qualifiers: Pulmonary embolism type: other Chronicity: acute Acute cor pulmonale presence: without acute cor pulmonale Qualified Code(s): I26.99 - Other pulmonary embolism without acute cor pulmonale Plan to address problem: Patient is on Apixaban. (2) Obstructive sleep apnea Current Visit: Yes Status: Acute Plan to address problem: CPAP during night time. (3) Morbid obesity with BMI of 50.0-59.9, adult Current Visit: Yes Status: Acute Plan to address problem: Recommend to loose weight. Weight reduction diet. Subjective Date of service: 12/03/17 Interval history: Patient alert, awake. Sitting in chair.Not using O2 as recommended. Complaining shortness of breath with cough. No acute respiratory distress.O2 saturation 97%. Patient using CPAP at night. Objective Vital Signs - 12hr 12/03/17 04:26 Temperature 98.3 F Pulse Rate 88 Respiratory 18 Rate Blood Pressure 108/63 O2 Sat by Pulse 92 Oximetry Constitutional: no acute distress, alert Eyes: non-icteric ENT: oropharynx moist Neck: supple, no lymphadenopathy Effort: normal Ascultation: Bilateral: diminished breath sounds Cardiovascular: regular rate and rhythm Gastrointestinal: normoactive bowel sounds, soft, non-tender Integumentary: normal Extremities: no cyanosis, no edema Neurologic: normal mental status, non-focal exam, pupils equal and round, CN II- XII normal Psychiatric: mood appropriate CBC and BMP: 12/03/17 01:36 11/30/17 04:50 ABG, PT/INR, D-dimer: PT/INR, D-dimer D-Dimer 272.05 ng/mlDDU (0-234) H 11/29/17 16:32 Abnormal lab findings: Abnormal Labs 11/29/17 11/29/17 11/29/17 15:18 15:18 16:32 Hgb 10.2 L Hct 33.4 L MCV 75 L MCH 23 L MCHC 31 L RDW 17.6 H Lymph % (Auto) 36.3 H [place] % (Auto) 7.6 H D-Dimer 272.05 H BUN 7 L Creatinine 0.7 L Glucose 133 H Hemoglobin A1c 11/30/17 11/30/17 12/01/17 04:50 04:50 01:10 Hgb 9.9 L 9.8 L Hct 32.3 L 32.0 L MCV 75 L 75 L MCH 23 L 23 L MCHC 31 L 31 L RDW 17.3 H 17.6 H Lymph % (Auto) 36.9 H [place] % (Auto) 7.6 H D-Dimer BUN 6 L Creatinine 0.5 L Glucose 196 H Hemoglobin A1c 12/01/17 12/03/17 01:10 01:36 Hgb 10.0 L Hct 32.8 L MCV 76 L MCH 23 L MCHC 31 L RDW 17.9 H Lymph % (Auto) [place] % (Auto) D-Dimer BUN Creatinine Glucose Hemoglobin A1c 7.7 H
--- NOTE | 2017-12-03 19:27 | Progress Note ---
Assessment and Plan Assessment and plan: Bradycardia Pulm Embolism Suspected Sleep Apnea Class III Morbid Obesity Plan continue Apixaban Outpatient sleep study close tele monitoring- no further pauses noted bleeding precautions f/u 2D Echo report reviewed EF 55% am labs Echocardiogram demonstrates normal left ventricular systolic function with ejection fraction 55%, borderline mild concentric left ventricular hypertrophy. No significant valvular lesions. Right-sided chambers were normal in size. further pt mgt per hospital course meclizine anticipate discharge in AM History Interval history: Patient seen and examined reports improvement. reports also sensation of ear fullness today. no dizziness. Hospitalist Physical - Physical exam Narrative exam: General appearance: Present: no acute distress, obese, malodorous, morbidly obese - EENT Eyes: Present: EOM intact ENT: hearing intact, clear oral mucosa, poor dentition - Neck Neck: Present: supple, normal ROM, other (short and obese) - Respiratory Respiratory: bilateral: CTA (distant AE due to body habitus), negative: rales, rhonchi - Cardiovascular Rhythm: regular Heart Sounds: Present: S1 & S2 - Extremities Extremities: No edema, normal temperature, normal color - Abdominal General gastrointestinal: soft, non-tender, non-distended, normal bowel sounds - Integumentary Integumentary: Present: clear, warm, dry - Psychiatric Psychiatric: appropriate mood/affect, intact judgment & insight, cooperative - Neurologic Neurologic: CNII-XII intact, moves all extremities - Allied Health Allied health notes reviewed: nursing - Constitutional Vitals: Temp Pulse Resp BP Pulse Ox 98.0 F 92 H 18 138/72 97 12/03/17 16:53 12/03/17 16:53 12/03/17 16:53 12/03/17 16:53 12/03/17 16:53 General appearance: Present: no acute distress Results - Labs CBC & Chem 7: 12/03/17 01:36 11/30/17 04:50 Labs: Laboratory Last Values WBC 8.2 K/mm3 (4.5-11.0) 12/03/17 01:36 RBC 4.30 M/mm3 (3.65-5.03) 12/03/17 01:36 Hgb 10.0 gm/dl (11.8-15.2) L 12/03/17 01:36 Hct 32.8 % (35.5-45.6) L 12/03/17 01:36 MCV 76 fl (84-94) L 12/03/17 01:36 MCH 23 pg (28-32) L 12/03/17 01:36 MCHC 31 % (32-34) L 12/03/17 01:36 RDW 17.9 % (13.2-15.2) H 12/03/17 01:36 Plt Count 269 K/mm3 (140-440) 12/03/17 01:36 Lymph % (Auto) 36.9 % (13.4-35.0) H 11/30/17 04:50 [place] % (Auto) 7.6 % (0.0-7.3) H 11/30/17 04:50 Eos % (Auto) 2.2 % (0.0-4.3) 11/30/17 04:50 Baso % (Auto) 0.3 % (0.0-1.8) 11/30/17 04:50 Lymph # 2.7 K/mm3 (1.2-5.4) 11/30/17 04:50 [place] # 0.6 K/mm3 (0.0-0.8) 11/30/17 04:50 Eos # 0.2 K/mm3 (0.0-0.4) 11/30/17 04:50 Baso # 0.0 K/mm3 (0.0-0.1) 11/30/17 04:50 Seg Neutrophils % 53.0 % (40.0-70.0) 11/30/17 04:50 Seg Neutrophils # 3.9 K/mm3 (1.8-7.7) 11/30/17 04:50 D-Dimer 272.05 ng/mlDDU (0-234) H 11/29/17 16:32 Sodium 141 mmol/L (137-145) 11/30/17 04:50 Potassium 3.7 mmol/L (3.6-5.0) 11/30/17 04:50 Chloride 102.0 mmol/L (98-107) 11/30/17 04:50 Carbon Dioxide 30 mmol/L (22-30) 11/30/17 04:50 Anion Gap 13 mmol/L 11/30/17 04:50 BUN 6 mg/dL (9-20) L 11/30/17 04:50 Creatinine 0.5 mg/dL (0.8-1.5) L 11/30/17 04:50 Estimated GFR > 60 ml/min 11/30/17 04:50 BUN/Creatinine Ratio 12 % 11/30/17 04:50 Glucose 196 mg/dL (75-100) H 11/30/17 04:50 Hemoglobin A1c 7.7 % (4-6) H 12/01/17 01:10 Calcium 8.7 mg/dL (8.4-10.2) 11/30/17 04:50 Troponin T < 0.010 ng/mL (0.00-0.029) 11/29/17 20:44 NT-Pro-B Natriuret Pep 50.79 pg/mL (0-450) 11/29/17 16:32
--- NOTE | 2017-12-04 09:32 | Progress Note ---
Assessment and Plan - Patient Problems (1) Bradycardia Current Visit: Yes Status: Acute (2) Chest pain Current Visit: Yes Status: Acute Qualifiers: Chest pain type: unspecified Qualified Code(s): R07.9 - Chest pain, unspecified (3) Morbid obesity with BMI of 50.0-59.9, adult Current Visit: Yes Status: Acute (4) Obstructive sleep apnea Current Visit: Yes Status: Acute (5) Pulmonary embolism Current Visit: Yes Status: Acute Qualifiers: Pulmonary embolism type: other Chronicity: acute Acute cor pulmonale presence: without acute cor pulmonale Qualified Code(s): I26.99 - Other pulmonary embolism without acute cor pulmonale Subjective Date of service: 12/04/17 Interval history: PLEURITIC CP -IMPROVED Objective Vital Signs Temp Pulse Pulse Resp BP Pulse Ox 12/04/17 01:00 94 H 12/03/17 23:26 98.2 F 87 18 115/68 99 12/03/17 22:00 93 H 18 98 12/03/17 21:31 97 12/03/17 19:35 97.9 F 93 H 18 109/69 98 12/03/17 16:53 98.0 F 92 H 18 138/72 97 12/03/17 14:11 100 - Physical Examination General: No Apparent Distress, Other (Obese) HEENT: Positive: PERRL Neck: Positive: neck supple Cardiac: Positive: Reg Rate and Rhythm Lungs: Positive: clear to auscultation Neuro: Positive: Grossly Intact Abdomen: Positive: Soft Skin: Positive: Clear Extremities: Absent: edema
[2017-12-04] MEDS: ELIQUIS PO SCH ×2 (09:41→22:10)
[2017-12-04] MEDS: ANTIVERT PO SCH ×2 (09:41→22:15)
[2017-12-04] MEDS: SODIUM CHLORIDE FLUSH SYRINGE 10 ML IV SCH ×2 (09:42→22:11)
--- NOTE | 2017-12-04 14:21 | Progress Note ---
Assessment and Plan Assessment and plan: Mr. Chester is a 32 yo man with a history of morbid obesity, bmi 55.8 at 400 lbs who presented with chest pains * CTA chest IMPRESSION: 1. Very small focus of incomplete enhancement or possible filling defect in the left interlobar pulmonary artery may be artifactual or represent scarring, although small pulmonary embolus not completely excluded. Clinical correlation and followup may be warranted. 2. No other evidence of large vessel or central pulmonary emboli. No acute consolidation. 3. Cholelithiasis. * ECHO reported est EF 55%, borderline mild concentric LVH, trace MR * U/S venous doppler negative for DVT -Suspect Acute Pulmonary Embolus, unable to get v/q due to morbid obesity and CTA chest inconclusive: on Eliquis -Cardiac sinus arrest: Last cardiac pause was 12/04/17 at 6:30am, Cardiology evaluated and believes these pauses are due to TONIA -Anemia appears AOCD: cbc monitoring have been steady -Hyperglycemia with A1c 7.7, most likely new DM type 2: initiate Metformin -Suspect TONIA/OHS: pt has never been officially diagnosis with TONIA and he doesn' t have a cpap machine, or oxygen, Pulmonology is following -Morbid Obesity bmi 58.8 with metabolic syndrom: lifestyle modifications discussed -Tobacco dependency: advised pt to stop smoking -Cholelithiasis without obstruction, asymptomatic -DVT prophylaxis: scd and Eliquis -Advance care planning: full code full code Disposition: continue inpatient care, if cardiac pauses due to TONIA and pt doesn' t have cpap machine or noctunal O2 then how can he be discharged without o2 or cpap; will defer to Pulmonology for solution. History Interval history: Patient was seen and examined. Follow-up on current diagnosis. Overnight uneventful. Patient denies any chest pain, shortness breath, nausea/vomiting or severe headaches. Imaging, nursing note, chart, labs and old chart reviewed. Discussed with patient. GEN: WDWN, NAD, Awake, Alert, Orientated HEENT: NCAT, EOMI, PERRL, OP Clear NECK: supple, no adenopathy, no thyromegaly, no JVD CVS/HEART: RRR, normal S1S2, pulses present bilaterally CHEST/LUNGS: CTA B, Symmetrical chest expansion, good air entry bilaterally GI/Abdomen: soft, NTND, good bowel sounds, no guarding or rebound /Bladder: no suprapubic tenderness, no CVA or paraspinal tenderness EXT/Skin: no c/c/e, no obvious rash MSK: FROM x 4 Neuro: CN 2-12 grossly intact, no new focal deficits Psych: calm ROS: Constitutional: denies: fever ENT: denies: throat or neck pain Respiratory: denies: cough, shortness of breath Cardiovascular: denies: chest pain Endocrine: denies unexplained weight loss or gain Gastrointestinal: denies: abdominal pain, nausea Genitourinary: denies: dysuria Rectal: denies no incontinence, no bleeding, no itching, no discharge Musculoskeletal: denies swelling, myaglia, muscle weakness Skin: denies: rash Neurological: denies: headache Hematological/Lymphatic: denies: easy bleeding or easy bruising Allergic/Immunologic: no urticaria, no allergic rhinitis, no anaphylaxis Psych: denies sadness or hopelessness, SI/HI Hospitalist Physical - Constitutional Vitals: Temp Pulse Resp BP Pulse Ox 98.3 F 60 20 123/57 100 12/04/17 08:00 12/04/17 08:00 12/04/17 08:00 12/04/17 08:00 12/04/17 08:00 General appearance: Present: no acute distress Results - Labs CBC & Chem 7: 12/03/17 01:36 11/30/17 04:50 Labs: Laboratory Last Values WBC 8.2 K/mm3 (4.5-11.0) 12/03/17 01:36 RBC 4.30 M/mm3 (3.65-5.03) 12/03/17 01:36 Hgb 10.0 gm/dl (11.8-15.2) L 12/03/17 01:36 Hct 32.8 % (35.5-45.6) L 12/03/17 01:36 MCV 76 fl (84-94) L 12/03/17 01:36 MCH 23 pg (28-32) L 12/03/17 01:36 MCHC 31 % (32-34) L 12/03/17 01:36 RDW 17.9 % (13.2-15.2) H 12/03/17 01:36 Plt Count 269 K/mm3 (140-440) 12/03/17 01:36 Lymph % (Auto) 36.9 % (13.4-35.0) H 11/30/17 04:50 [place] % (Auto) 7.6 % (0.0-7.3) H 11/30/17 04:50 Eos % (Auto) 2.2 % (0.0-4.3) 11/30/17 04:50 Baso % (Auto) 0.3 % (0.0-1.8) 11/30/17 04:50 Lymph # 2.7 K/mm3 (1.2-5.4) 11/30/17 04:50 [place] # 0.6 K/mm3 (0.0-0.8) 11/30/17 04:50 Eos # 0.2 K/mm3 (0.0-0.4) 11/30/17 04:50 Baso # 0.0 K/mm3 (0.0-0.1) 11/30/17 04:50 Seg Neutrophils % 53.0 % (40.0-70.0) 11/30/17 04:50 Seg Neutrophils # 3.9 K/mm3 (1.8-7.7) 11/30/17 04:50 D-Dimer 272.05 ng/mlDDU (0-234) H 11/29/17 16:32 Sodium 141 mmol/L (137-145) 11/30/17 04:50 Potassium 3.7 mmol/L (3.6-5.0) 11/30/17 04:50 Chloride 102.0 mmol/L (98-107) 11/30/17 04:50 Carbon Dioxide 30 mmol/L (22-30) 11/30/17 04:50 Anion Gap 13 mmol/L 11/30/17 04:50 BUN 6 mg/dL (9-20) L 11/30/17 04:50 Creatinine 0.5 mg/dL (0.8-1.5) L 11/30/17 04:50 Estimated GFR > 60 ml/min 11/30/17 04:50 BUN/Creatinine Ratio 12 % 11/30/17 04:50 Glucose 196 mg/dL (75-100) H 11/30/17 04:50 Hemoglobin A1c 7.7 % (4-6) H 12/01/17 01:10 Calcium 8.7 mg/dL (8.4-10.2) 11/30/17 04:50 Troponin T < 0.010 ng/mL (0.00-0.029) 11/29/17 20:44 NT-Pro-B Natriuret Pep 50.79 pg/mL (0-450) 11/29/17 16:32
[2017-12-04] MEDS ORDERED: D50W (25GM) Syringe IV PRN (17:20)
[2017-12-04] MEDS: HumaLOG SUB-Q SCH (22:33)
[2017-12-05] MEDS: GLUCOPHAGE PO SCH ×3 (02:34→17:49)
[2017-12-05 07:02] LABS: Hematocrit 33.5 % (35.5-45.6); Hemoglobin 10.4 gm/dl (11.8-15.2); Mean Corpuscular HGB Conc 31 % (32-34); Mean Corpuscular Volume 75 fl (84-94); Platelet Count 263 K/mm3 (140-440); Red Cell Distribution Width 17.7 % (13.2-15.2)
[2017-12-05 07:03] LABS: Mean Corpuscular Hemoglobin 23 pg (28-32)
[2017-12-05 07:27] LABS: BUN/Creatinine Ratio 15; Blood Urea Nitrogen 9 mg/dL (9-20); Calcium 8.8 mg/dL (8.4-10.2); Hemolysis Index 0
[2017-12-05] MEDS: HumaLOG SUB-Q SCH ×3 (08:04→17:49)
[2017-12-05] MEDS: ELIQUIS PO SCH ×2 (09:16→21:44)
[2017-12-05] MEDS: SODIUM CHLORIDE FLUSH SYRINGE 10 ML IV SCH ×2 (09:17→21:45)
--- NOTE | 2017-12-05 09:51 | Progress Note ---
Assessment and Plan Mr. Chester is a 32 yo man with a history of morbid obesity, BMI 55.8 at 400 lbs who presented with chest pain * CTA chest IMPRESSION: 1. Very small focus of incomplete enhancement or possible filling defect in the left interlobar pulmonary artery may be artifactual or represent scarring, although small pulmonary embolus not completely excluded. Clinical correlation and followup may be warranted. 2. No other evidence of large vessel or central pulmonary emboli. No acute consolidation. 3. Cholelithiasis. * ECHO reported est EF 55%, borderline mild concentric LVH, trace MR * U/S venous doppler negative for DVT Chest pain ECG is normal and cardiac enzymes are normal CTA of the chest reports equivocal findings for possible pulmonary embolism Echocardiogram demonstrates normal left ventricular systolic function with ejection fraction 55%, borderline mild concentric left ventricular hypertrophy. No significant valvular lesions. Right-sided chambers were normal in size. -Suspected Acute Pulmonary Embolus -Cardiac sinus pauses during sleep -Anemia appears AOCD -Hyperglycemia with A1c 7.7, most likely new DM type 2 -Suspect TONIA/OHS -Extreme Obesity -Nicotine dependence/Tobacco abuse disorder -Cholelithiasis without obstruction -Patient needs home oxygen assessment. -Outpatient sleep study and then CPAP -Get case management for discharge planning. -The patient is unfunded, so in the absence of health care insurance, will need some sort of indigent care plan/help to facilitate discharge planning -Would recommend Coumadin, rather than Eliquis, to ensure compliance as he will need to purchase his medications -Smoking cessation counselling -Weight loss and lifestyle modifications Subjective Date of service: 12/05/17 Interval history: F/UP For atypical chest pain, possible PE; Extreme obesity: Sleep apnea No acute overnight events. Vitals, labs, medications, chart reviewed. Sleeping in the chair, loud snoring No new overnigth events, 24 hour events reviewed. Objective - Exam Narrative Exam: General appearance: Present: no acute distress, obese, malodorous, morbidly obese - EENT Eyes: Present: EOM intact ENT: hearing intact, clear oral mucosa, poor dentition - Neck Neck: Present: supple, normal ROM, other (short and obese) - Respiratory Respiratory: bilateral: CTA (distant AE due to body habitus), negative: rales, rhonchi - Cardiovascular Rhythm: regular Heart Sounds: Present: S1 & S2 - Extremities Extremities: No edema, normal temperature, normal color - Abdominal General gastrointestinal: soft, non-tender, non-distended, normal bowel sounds - Integumentary Integumentary: Present: clear, warm, dry - Psychiatric Psychiatric: appropriate mood/affect, intact judgment & insight, cooperative - Neurologic Neurologic: CNII-XII intact, moves all extremities - Allied Health Allied health notes reviewed: nursing Vital Signs - 12hr 12/04/17 12/05/17 23:18 05:12 Temperature 98.5 F 98.2 F Pulse Rate 86 89 Respiratory 18 18 Rate Blood Pressure 110/55 127/92 O2 Sat by Pulse 96 100 Oximetry Constitutional: no acute distress, alert Eyes: non-icteric ENT: oropharynx moist Neck: supple, no lymphadenopathy Effort: normal Ascultation: Bilateral: diminished breath sounds Cardiovascular: regular rate and rhythm Gastrointestinal: normoactive bowel sounds, soft, non-tender Integumentary: normal Extremities: no cyanosis, no edema Neurologic: normal mental status, non-focal exam, pupils equal and round, CN II- XII normal Psychiatric: mood appropriate CBC and BMP: 12/05/17 06:20 12/05/17 06:20 ABG, PT/INR, D-dimer: PT/INR, D-dimer D-Dimer 272.05 ng/mlDDU (0-234) H 11/29/17 16:32 Abnormal lab findings: Abnormal Labs 11/29/17 11/29/17 11/29/17 15:18 15:18 16:32 Hgb 10.2 L Hct 33.4 L MCV 75 L MCH 23 L MCHC 31 L RDW 17.6 H Lymph % (Auto) 36.3 H [place] % (Auto) 7.6 H D-Dimer 272.05 H BUN 7 L Creatinine 0.7 L Glucose 133 H POC Glucose Hemoglobin A1c 11/30/17 11/30/17 12/01/17 04:50 04:50 01:10 Hgb 9.9 L 9.8 L Hct 32.3 L 32.0 L MCV 75 L 75 L MCH 23 L 23 L MCHC 31 L 31 L RDW 17.3 H 17.6 H Lymph % (Auto) 36.9 H [place] % (Auto) 7.6 H D-Dimer BUN 6 L Creatinine 0.5 L Glucose 196 H POC Glucose Hemoglobin A1c 12/01/17 12/03/17 12/04/17 01:10 01:36 21:40 Hgb 10.0 L Hct 32.8 L MCV 76 L MCH 23 L MCHC 31 L RDW 17.9 H Lymph % (Auto) [place] % (Auto) D-Dimer BUN Creatinine Glucose POC Glucose 143 H Hemoglobin A1c 7.7 H 12/05/17 12/05/17 12/05/17 05:22 06:20 06:20 Hgb 10.4 L Hct 33.5 L MCV 75 L MCH 23 L MCHC 31 L RDW 17.7 H Lymph % (Auto) [place] % (Auto) D-Dimer BUN Creatinine 0.6 L Glucose 125 H POC Glucose 118 H Hemoglobin A1c
--- NOTE | 2017-12-05 11:42 | Progress Note ---
Assessment and Plan - Patient Problems (1) Bradycardia Current Visit: Yes Status: Acute (2) Chest pain Current Visit: Yes Status: Acute Qualifiers: Chest pain type: unspecified Qualified Code(s): R07.9 - Chest pain, unspecified (3) Morbid obesity with BMI of 50.0-59.9, adult Current Visit: Yes Status: Acute (4) Obstructive sleep apnea Current Visit: Yes Status: Acute (5) Pulmonary embolism Current Visit: Yes Status: Acute Qualifiers: Pulmonary embolism type: other Chronicity: acute Acute cor pulmonale presence: without acute cor pulmonale Qualified Code(s): I26.99 - Other pulmonary embolism without acute cor pulmonale Subjective Date of service: 12/05/17 Interval history: PLEURITIC CP -IMPROVED Objective Vital Signs Temp Pulse Resp BP BP Pulse Ox 12/05/17 05:12 98.2 F 89 18 127/92 100 12/04/17 23:18 98.5 F 86 18 110/55 96 12/04/17 21:04 98 H 12/04/17 19:39 98.3 F 98 H 18 122/74 94 12/04/17 16:00 97.8 F 92 H 20 123/68 98 12/04/17 13:00 76 - Physical Examination General: No Apparent Distress, Other (Obese) HEENT: Positive: PERRL Neck: Positive: neck supple Cardiac: Positive: Reg Rate and Rhythm Lungs: Positive: clear to auscultation, Decreased Breath Sounds Neuro: Positive: Grossly Intact Abdomen: Positive: Soft Skin: Positive: Clear Extremities: Absent: edema - Labs and Meds CBC 12/05/17 Range/Units 06:20 WBC 7.1 (4.5-11.0) K/mm3 RBC 4.50 (3.65-5.03) M/mm3 Hgb 10.4 L (11.8-15.2) gm/dl Hct 33.5 L (35.5-45.6) % Plt Count 263 (140-440) K/mm3 Comprehensive Metabolic Panel 12/05/17 Range/Units 06:20 Sodium 139 (137-145) mmol/L Potassium 4.0 (3.6-5.0) mmol/L Chloride 99.1 (98-107) mmol/L Carbon Dioxide 30 (22-30) mmol/L BUN 9 (9-20) mg/dL Creatinine 0.6 L (0.8-1.5) mg/dL Glucose 125 H (75-100) mg/dL Calcium 8.8 (8.4-10.2) mg/dL
--- NOTE | 2017-12-05 14:17 | Progress Note ---
Assessment and Plan Assessment and plan: Mr. Chester is a 32 yo man with a history of morbid obesity, bmi 55.8 at 400 lbs who presented with chest pains * CTA chest IMPRESSION: 1. Very small focus of incomplete enhancement or possible filling defect in the left interlobar pulmonary artery may be artifactual or represent scarring, although small pulmonary embolus not completely excluded. Clinical correlation and followup may be warranted. 2. No other evidence of large vessel or central pulmonary emboli. No acute consolidation. 3. Cholelithiasis. * ECHO reported est EF 55%, borderline mild concentric LVH, trace MR * U/S venous doppler negative for DVT -Suspect Acute Pulmonary Embolus, unable to get v/q due to morbid obesity and CTA chest inconclusive: on Eliquis -Cardiac sinus arrest: Last cardiac pause was 12/04/17 at 6:30am, Cardiology evaluated and believes these pauses are due to TONIA -Anemia appears AOCD: cbc monitoring have been steady -Hyperglycemia with A1c 7.7, most likely new DM type 2: initiate Metformin -Suspect TONIA/OHS: pt has never been officially diagnosis with TONIA and he doesn' t have a cpap machine, or oxygen, Pulmonology is following -Morbid Obesity bmi 58.8 with metabolic syndrome: lifestyle modifications discussed -Tobacco dependency: advised pt to stop smoking -Cholelithiasis without obstruction, asymptomatic -DVT prophylaxis: scd and Eliquis -Advance care planning: full code full code Disposition: continue inpatient care, if cardiac pauses due to TONIA and pt doesn' t have cpap machine or noctunal O2 then how can he be discharged without o2 or cpap; will defer to Pulmonology for solution. He is noncompliant with cpap machine, counseling done. Case management consulted for possible home O2. Eliquis coupon will be given to lower cost and hopefully improve compliance History Interval history: Patient was seen and examined. Follow-up on current diagnosis. Overnight uneventful. Patient denies any chest pain, shortness breath, nausea/vomiting or severe headaches. Imaging, nursing note, chart, labs and old chart reviewed. Discussed with patient. He refused to wear cpap last night but the o2 did help and no mention of cardiac pauses Hospitalist Physical - Physical exam Narrative exam: GEN: WDWN, NAD, Awake, Alert, Orientated x 3, bmi 55.8 HEENT: NCAT, EOMI, PERRL, OP Clear NECK: supple, no adenopathy, no thyromegaly, no JVD CVS/HEART: RRR, normal S1S2, pulses present bilaterally CHEST/LUNGS: CTA B, Symmetrical chest expansion, good air entry bilaterally GI/Abdomen: soft, NTND, good bowel sounds, no guarding or rebound /Bladder: no suprapubic tenderness, no CVA or paraspinal tenderness EXT/Skin: no c/c/e, no obvious rash MSK: FROM x 4 Neuro: CN 2-12 grossly intact, no new focal deficits Psych: calm - Constitutional Vitals: Temp Pulse Resp BP Pulse Ox 98.4 F 92 H 20 105/56 95 12/05/17 11:31 12/05/17 11:31 12/05/17 11:31 12/05/17 11:31 12/05/17 11:31 General appearance: Present: no acute distress Results - Labs CBC & Chem 7: 12/05/17 06:20 12/05/17 06:20 Labs: Laboratory Last Values WBC 7.1 K/mm3 (4.5-11.0) 12/05/17 06:20 RBC 4.50 M/mm3 (3.65-5.03) 12/05/17 06:20 Hgb 10.4 gm/dl (11.8-15.2) L 12/05/17 06:20 Hct 33.5 % (35.5-45.6) L 12/05/17 06:20 MCV 75 fl (84-94) L 12/05/17 06:20 MCH 23 pg (28-32) L 12/05/17 06:20 MCHC 31 % (32-34) L 12/05/17 06:20 RDW 17.7 % (13.2-15.2) H 12/05/17 06:20 Plt Count 263 K/mm3 (140-440) 12/05/17 06:20 Lymph % (Auto) 36.9 % (13.4-35.0) H 11/30/17 04:50 [place] % (Auto) 7.6 % (0.0-7.3) H 11/30/17 04:50 Eos % (Auto) 2.2 % (0.0-4.3) 11/30/17 04:50 Baso % (Auto) 0.3 % (0.0-1.8) 11/30/17 04:50 Lymph # 2.7 K/mm3 (1.2-5.4) 11/30/17 04:50 [place] # 0.6 K/mm3 (0.0-0.8) 11/30/17 04:50 Eos # 0.2 K/mm3 (0.0-0.4) 11/30/17 04:50 Baso # 0.0 K/mm3 (0.0-0.1) 11/30/17 04:50 Seg Neutrophils % 53.0 % (40.0-70.0) 11/30/17 04:50 Seg Neutrophils # 3.9 K/mm3 (1.8-7.7) 11/30/17 04:50 D-Dimer 272.05 ng/mlDDU (0-234) H 11/29/17 16:32 Sodium 139 mmol/L (137-145) 12/05/17 06:20 Potassium 4.0 mmol/L (3.6-5.0) 12/05/17 06:20 Chloride 99.1 mmol/L (98-107) 12/05/17 06:20 Carbon Dioxide 30 mmol/L (22-30) 12/05/17 06:20 Anion Gap 14 mmol/L 12/05/17 06:20 BUN 9 mg/dL (9-20) 12/05/17 06:20 Creatinine 0.6 mg/dL (0.8-1.5) L 12/05/17 06:20 Estimated GFR > 60 ml/min 12/05/17 06:20 BUN/Creatinine Ratio 15 % 12/05/17 06:20 Glucose 125 mg/dL (75-100) H 12/05/17 06:20 POC Glucose 167 (70-105) H 12/05/17 11:39 Hemoglobin A1c 7.7 % (4-6) H 12/01/17 01:10 Calcium 8.8 mg/dL (8.4-10.2) 12/05/17 06:20 Magnesium 1.90 mg/dL (1.7-2.3) 12/05/17 06:20 Troponin T < 0.010 ng/mL (0.00-0.029) 11/29/17 20:44 NT-Pro-B Natriuret Pep 50.79 pg/mL (0-450) 11/29/17 16:32
[2017-12-06] MEDS: HumaLOG SUB-Q SCH ×4 (05:00→17:36)
[2017-12-06] MEDS: GLUCOPHAGE PO SCH ×2 (10:12→17:36)
[2017-12-06 10:16] VITALS: BP 129/62
[2017-12-06] MEDS: ELIQUIS PO SCH (12:37)
[2017-12-06] MEDS: SODIUM CHLORIDE FLUSH SYRINGE 10 ML IV SCH (12:38)
--- NOTE | 2017-12-06 12:45 | Progress Note ---
Assessment and Plan Suspected Acute Pulmonary Embolus (H/O prior untreated P.E. per patient) Cardiac sinus pauses during sleep Anemia appears AOCD Hyperglycemia with A1c 7.7, most likely new DM type 2 Suspect TONIA/OHS Extreme Obesity Nicotine dependence/Tobacco abuse disorder Cholelithiasis without obstruction - Patient needs home oxygen assessment. - Outpatient sleep study and then CPAP - Get case management for discharge planning. - The patient is unfunded, so in the absence of health care insurance, will need some sort of indigent care plan/help to facilitate discharge planning - Would recommend Coumadin, rather than Eliquis (to ensure compliance as he will need to purchase his medications) however if case management able to get him Eliquis at a bui he can afford - Smoking cessation counseled - tobacco cessation counseled - Weight loss and lifestyle modifications - case discussed with attending .... 25' Subjective Date of service: 12/06/17 Principal diagnosis: Acute Pulmonary Embolus; Chest Pain; Morbid Obesity Interval history: Patient is seen today for: Acute Pulmonary Embolus; Chest Pain; Morbid Obesity Seen and examined at bedside; 24hour events reviewed; nursing and respiratory care staff consulted; no adverse overnight events reported to me; sitting in chair; eating lunch; remains on oxygen; no bleeding; No N/V/F/C; no chest pains or palpitations Objective Vital Signs - 12hr 12/06/17 12/06/17 12/06/17 01:08 06:20 09:00 Temperature 98 F 97.6 F 98.2 F Pulse Rate 98 H 84 90 Respiratory 18 18 18 Rate Blood Pressure 129/62 Blood Pressure 141/68 133/77 [Left] O2 Sat by Pulse 93 98 95 Oximetry Constitutional: no acute distress, alert Eyes: non-icteric ENT: oropharynx moist Neck: supple, no lymphadenopathy Effort: normal Ascultation: Bilateral: diminished breath sounds Percussion: Bilateral: not dull Cardiovascular: regular rate and rhythm Gastrointestinal: normoactive bowel sounds, soft, non-tender Integumentary: normal Extremities: no cyanosis, no edema Neurologic: normal mental status, non-focal exam, pupils equal and round, CN II- XII normal Psychiatric: mood appropriate CBC and BMP: 12/05/17 06:20 12/05/17 06:20 ABG, PT/INR, D-dimer: PT/INR, D-dimer D-Dimer 272.05 ng/mlDDU (0-234) H 11/29/17 16:32 Abnormal lab findings: Abnormal Labs 11/29/17 11/29/17 11/29/17 15:18 15:18 16:32 Hgb 10.2 L Hct 33.4 L MCV 75 L MCH 23 L MCHC 31 L RDW 17.6 H Lymph % (Auto) 36.3 H [place] % (Auto) 7.6 H D-Dimer 272.05 H BUN 7 L Creatinine 0.7 L Glucose 133 H POC Glucose Hemoglobin A1c 11/30/17 11/30/17 12/01/17 04:50 04:50 01:10 Hgb 9.9 L 9.8 L Hct 32.3 L 32.0 L MCV 75 L 75 L MCH 23 L 23 L MCHC 31 L 31 L RDW 17.3 H 17.6 H Lymph % (Auto) 36.9 H [place] % (Auto) 7.6 H D-Dimer BUN 6 L Creatinine 0.5 L Glucose 196 H POC Glucose Hemoglobin A1c 12/01/17 12/03/17 12/04/17 01:10 01:36 21:40 Hgb 10.0 L Hct 32.8 L MCV 76 L MCH 23 L MCHC 31 L RDW 17.9 H Lymph % (Auto) [place] % (Auto) D-Dimer BUN Creatinine Glucose POC Glucose 143 H Hemoglobin A1c 7.7 H 12/05/17 12/05/17 12/05/17 05:22 06:20 06:20 Hgb 10.4 L Hct 33.5 L MCV 75 L MCH 23 L MCHC 31 L RDW 17.7 H Lymph % (Auto) [place] % (Auto) D-Dimer BUN Creatinine 0.6 L Glucose 125 H POC Glucose 118 H Hemoglobin A1c 12/05/17 12/05/17 12/06/17 11:39 16:22 10:01 Hgb Hct MCV MCH MCHC RDW Lymph % (Auto) [place] % (Auto) D-Dimer BUN Creatinine Glucose POC Glucose 167 H 133 H 180 H Hemoglobin A1c
--- NOTE | 2017-12-06 13:34 | Discharge Summary ---
Providers - Providers Date of Admission: 11/29/17 22:57 Date of discharge: 12/06/17 Attending physician: NILSON PEACE 11/30/17 08:59 Consult to Physician [CONS] Routine Comment: Consulting Provider: ELLIS NUNEZ Physician Instructions: Reason For Exam: pulm embolism 11/30/17 15:59 Consult to Dietitian/Nutrition [CONS] Routine Physician Instructions: Reason For Exam: Reason for Consult: obesity 12/02/17 13:00 Consult to Physician [CONS] Routine Comment: Consulting Provider: BRITTANY KWOK Physician Instructions: Reason For Exam: Abnormal Rhythm strip with Long pauses 12/05/17 14:12 Consult to Case Management [CONS] Routine Services Needed at Discharge: Home O2 Notified:: correctional case records supervisor Additional Physician Instructions: Primary care physician: PASTRY CHEF Hospitalization Condition: Stable Hospital course: Mr. Chester is a 32 yo man with a history of morbid obesity, bmi 55.8 at 400 lbs who presented with chest pains * CTA chest IMPRESSION: 1. Very small focus of incomplete enhancement or possible filling defect in the left interlobar pulmonary artery may be artifactual or represent scarring, although small pulmonary embolus not completely excluded. Clinical correlation and followup may be warranted. 2. No other evidence of large vessel or central pulmonary emboli. No acute consolidation. 3. Cholelithiasis. * ECHO reported est EF 55%, borderline mild concentric LVH, trace MR * U/S venous doppler negative for DVT -Chest pains thought to be due to Suspect Acute Pulmonary Embolus, unable to get v/q due to morbid obesity and CTA chest inconclusive: on Eliquis -Cardiac sinus arrest: Last cardiac pause was 12/04/17 at 6:30am, Cardiology evaluated and believes these pauses are due to TONIA -Anemia appears AOCD: cbc monitoring have been steady -Hyperglycemia with A1c 7.7, most likely new DM type 2: initiate Metformin, education done -Suspect TONIA/OHS: pt has never been officially diagnosis with TONIA and he doesn' t have a cpap machine, or oxygen, Pulmonology is following -Morbid Obesity bmi 58.8 with metabolic syndrome: lifestyle modifications discussed -Tobacco dependency: advised pt to stop smoking -Cholelithiasis without obstruction, asymptomatic -DVT prophylaxis: scd and Eliquis -Advance care planning: full code full code Disposition: home Discharge held due to cardiac pauses. He was evaluated by Cardiology and cardiac pauses were thought to be due to TONIA. Patient doesn't have cpap machine or noctunal O2. As it turns out patient admits to not wearing cpap and O2 all the time at night. He is noncompliant with cpap machine and o2 so education and counseling done. He promises to do better. It appears he doesn't quality for oxygen as O2 saturation has not been less than 90% per chart. Whether patient takes Coumadin or Eliquis, he still needs to be compliant and Counseling done. Eliquis is $10 for the first month and then he can get on the patient assistance program but has to call the number, counseling done. Disposition: DC-01 TO HOME OR SELFCARE Time spent for discharge: 33 minutes Core Measure Documentation - Palliative Care Palliative Care/ Comfort Measures: Not Applicable - Core Measures Any of the following diagnoses?: DVT/PE - VTE Discharge Requirements Deep Vein Thrombosis/Pulmonary Embolism Present on Admission: Yes Has pt received <5 days of overlap therapy or INR<2.0: No (Elquis) Anticoagulant overlap therapy prescribed at discharge: No Contraindication No Overlap Therapy order at DC: Not Indicated Exam - Physical Exam Narrative exam: GEN: WDWN, NAD, Awake, Alert, Orientated x 3, bmi 55.8 HEENT: NCAT, EOMI, PERRL, OP Clear NECK: supple, no adenopathy, no thyromegaly, no JVD CVS/HEART: RRR, normal S1S2, pulses present bilaterally CHEST/LUNGS: CTA B, Symmetrical chest expansion, good air entry bilaterally GI/Abdomen: soft, NTND, good bowel sounds, no guarding or rebound /Bladder: no suprapubic tenderness, no CVA or paraspinal tenderness EXT/Skin: no c/c/e, no obvious rash MSK: FROM x 4 Neuro: CN 2-12 grossly intact, no new focal deficits Psych: calm - Constitutional Vitals: Temp Pulse Resp BP Pulse Ox 98.2 F 90 18 129/62 95 12/06/17 09:00 12/06/17 09:00 12/06/17 09:00 12/06/17 09:00 12/06/17 09:00 Plan Activity: other (no strenous activity) Diet: low salt, diabetic Special Instructions: record blood sugar diary (daily) Additional Instructions: see Dr. Pruitt regarding sleep study Follow up with: PRIMARY CAREMD [Primary Care Provider] - 7 Days SIMONE CARPENTER MD [Staff Physician] - 7 Days BRITTANY KWOK MD [Staff Physician] - 7 Days Prescriptions: Acetaminophen [Acetaminophen TAB] 650 mg PO Q4H PRN #30 tablet PRN Reason: Pain MILD(1-3)/Fever >100.5/NELSON Apixaban [Eliquis] 10 mg PO Q12HR #60 tablet metFORMIN [Glucophage] 500 mg PO BIDDIAB #60 tablet
--- NOTE | 2017-12-06 15:20 | Vascular Lab Report ---
LOWER EXTREMITY VENOUS DUPLEX: REASON FOR EXAM: DVT. COMMENTS ON THE RIGHT: All veins visualized are freely compressible without evidence of internal echogenicity. Flow is spontaneous and phasic throughout. COMMENTS ON THE LEFT: All veins visualized are freely compressible without evidence of internal echogenicity. Flow is spontaneous and phasic throughout. IMPRESSION: No evidence of acute or chronic deep venous thrombosis in either lower extremity.
--- NOTE | 2017-12-06 19:07 | Consultation ---
CONSULTING PHYSICIAN: Pam Tang MD REASON FOR CONSULTATION: Acute pulmonary embolism. CHIEF COMPLAINT AND HISTORY OF PRESENT ILLNESS: The patient is a 32-year-old -[place] male with past medical history significant for morbid obesity with a BMI greater than 55. He came into the Emergency Room complaining of chest pain. It was left chest precordial pain, squeezing pain. It was pleuritic in nature. Gave it about a 6/10 rating for pain. Denied any exacerbating or relieving factors initially in the ER; however, to me he admitted to increase in pain with respiratory effort. He denied any gross or streaky hemoptysis. Denied fevers or chills. He did admit to some recent long distance travel, but denied any new leg pain or swelling. He has had some swelling to his feet bilaterally, but nothing more than that. He was evaluated in the Emergency Room and workup included a CT angiogram of his chest that really was not the best study, a little bit of an equivocal study, but there was the suggestion of a possible filling defect in the left interlobar pulmonary artery. We are asked to assist with management. When I stopped by to see him in the room, he was resting in bed. When asked if he has ever been diagnosed with venous thromboembolic event, he said that a couple of years ago, he was diagnosed with a PE. He was supposed to have been on treatment, but never really took his anticoagulation. He denied any other bleeding diathesis. He denies significant weight loss in the preceding 3-6 months. When asked about tobacco use or abuse, he had denied any history of tobacco use. This really is as much of the history of presentation as I have. PAST MEDICAL HISTORY: Morbid obesity. He has reported history of venous thromboembolic event in the past. He also has a history of anxiety and a history of coronary artery disease according to him. PAST SURGICAL HISTORY: He has had a tonsillectomy done in the past. MEDICATIONS: He was on at the time I stopped by to see him were reviewed. Pertinent medications included the following: P.r.n. Tylenol, p.r.n. albuterol 2.5 mg q.3 hours p.r.n. shortness of breath. He had been started on Eliquis. Morphine 2 mg IV q.4 hours p.r.n. moderate pain, Zofran 4 mg IV q.8 hours p.r.n. nausea and vomiting. ALLERGIES: No known drug allergies. DIET: Morbidly obese. Denies significant weight loss or gain preceding few weeks to months. FAMILY AND SOCIAL HISTORY: Lives in the community. Denies alcohol, tobacco, or illicit drug use or abuse. Denies a family history of venous thromboembolic events. REVIEW OF SYSTEMS: No loss of consciousness. No new onset seizures. No new onset focal weakness. He denies any bleeding. No gross hematochezia or melena. No gross hematuria,. No hematemesis, no hemoptysis, no palpitations. Complete 13-system review of systems obtained. Pertinent positives and/or negatives as in body of history above, otherwise noncontributory. PHYSICAL EXAMINATION: VITAL SIGNS: At presentation, he was afebrile, temperature 98.2 degrees Fahrenheit, pulse of 88, respiratory rate of 18, blood pressure 128/77, oxygen sats were 98% at that time. Inspired oxygen concentration was not recorded at the time of my evaluation. He was on 2 liters nasal cannula. GENERAL: He is morbidly obese young -Hungarian male. Normocephalic, atraumatic, talking to me and occasionally in interrupted sentences, in mild respiratory distress. HEAD, EYES, EARS, NOSE AND THROAT: He is anicteric. No conjunctival erythema. Oropharynx is a Mallampati #3 oropharynx. Oropharynx is moist. No gross jugular venous distention. No thyromegaly. Grossly, no palpable lymph nodes in the supraclavicular or submandibular lymph node chains. LUNGS: Auscultation of both lung ray, diminished bilateral breath sounds, slightly prolonged. No wheezing. HEART: Heart sounds 1 and 2 are heard at the time of my evaluation, regular rate and rhythm. No rubs or murmurs. ABDOMEN: Soft, full, bowel sounds are positive, nontender, no palpable hepatosplenomegaly. EXTREMITIES: Without overt digital clubbing or cyanosis. Trace pedal edema. Dorsalis pedis pulses are palpable bilaterally. NEUROLOGIC: Pupils are equal, round, about 3-4 mm, reactive to light. Extraocular muscle movements are intact. He moved all 4 extremities spontaneously. SKIN: The skin was of poor turgor, especially in the lower extremities without overt cellulitis or rash. LABORATORY DATA: From my review are as follows: White count 6700 on admission with a hemoglobin of 10.2, hematocrit of 33.4, platelet count 298. D-dimer was slightly elevated at 272. Serum sodium 138, potassium 3.8, chloride 100, bicarbonate 28, BUN 7, creatinine 0.7, and a glucose of 133. Troponin was within normal limits. BNP is within normal limits. No microbiology studies. I have reviewed the CT scan and actually, despite the poor quality of the film, I do see the filling defect in context. We will have to agree with the radiologist at this time that it may be of significance. Otherwise, no focal infiltrates, no pneumothorax, no overt mediastinal adenopathy, and small lung volumes. ASSESSMENT AND PLAN: 1. Chest pain, symptomatic. 2. Abnormal CT scan suggesting pulmonary emboli. 3. Morbid obesity. 4. History of prior venous thromboembolic event. 5. Likely sleep disordered breathing. 6. Anemia, microcytic. 7. Elevated D-dimer. 8. Hyperglycemia. PLAN: As mentioned, the CT scan, it does seem to suggest a venous thromboembolic event; however, more bothersome is the risk factors in this patient with morbid obesity and also the fact that he has a history of untreated venous thromboembolic events. I think that a better management. Plan will be to go ahead and offer him full anticoagulation for at least 3 months of therapy. Hematology involvement might be of benefit as a decision will need to be made as to whether this is a recurrent PE, in which case he will need lifelong therapy if this is a solitary event and initial event. Weight loss has been counseled, continued tobacco abstinence has been encouraged. We will see if he is able to tolerate the Eliquis and perhaps even more importantly afford Eliquis as if he is unable to do that. He may need to be switched to a different kind of anticoagulation agent. He will be placed on GI prophylaxis. Flu and pneumonia vaccination will be addressed per protocol. Thank you very much for the consult. We will follow along and make further recommendations as the picture progresses/becomes clearer. JOB# [id number] DAVID/ZACK
[2017-12-07] MEDS ORDERED: ELIQUIS PO SCH (10:00)
== END 2017-12-06 18:18 | disposition home or self-care (01) | DRG 175 ==
LOC: ED 14:31 → 4A 22:57
PROVIDERS: ADMIT Internal Medicine; ATTEND Internal Medicine
PROC: 5A09357 Assistance with Respiratory Ventilation, Less than 24 Consecutive Hours, Continuous Positive Airway Pressure (ICD-10-PCS; principal; 2017-12-05)
DX: I26.99 Other pulmonary embolism without acute cor pulmonale (principal); I46.9 Cardiac arrest, cause unspecified; Z68.43 Body mass index [BMI] 50.0-59.9, adult; E66.01 Morbid (severe) obesity due to excess calories; I45.5 Other specified heart block; D63.8 Anemia in other chronic diseases classified elsewhere; E11.65 Type 2 diabetes mellitus with hyperglycemia; G47.33 Obstructive sleep apnea (adult) (pediatric); E88.81 Metabolic syndrome and other insulin resistance; F17.200 Nicotine dependence, unspecified, uncomplicated; K80.20 Calculus of gallbladder without cholecystitis without obstruction; R00.1 Bradycardia, unspecified; F41.9 Anxiety disorder, unspecified; Z71.6 Tobacco abuse counseling; Z82.49 Family history of ischemic heart disease and other diseases of the circulatory system; I25.2 Old myocardial infarction
CPT/HCPCS: 36415; 71045; 71275; 80048; 82962; 83036; 83735; 83880; 84484; 85025; 85027; 85379; 93005; 93010; 93306; 93970; 94660; 94760; 99406; J1815; J2270; Q9967

== ENCOUNTER 2017-12-10 13:49 | Emergency (ER) | payer SELFPAY ==
[2017-12-10 14:11] VITALS: BP 148/85
[2017-12-10] MEDS ORDERED: NACL 0.9% 1000 ML 1,000 ML IV ONE (14:11)
[2017-12-10 15:04] LABS: Basophils % (Auto) 0.5 % (0.0-1.8); Eosinophils # (Auto) 0.2 K/mm3 (0.0-0.4); Eosinophils % (Auto) 2.3 % (0.0-4.3); Hematocrit 32.4 % (35.5-45.6); Hemoglobin 10.7 gm/dl (11.8-15.2); Lymphocytes # (Auto) 2.3 K/mm3 (1.2-5.4); Lymphocytes % (Auto) 35.4 % (13.4-35.0); Mean Corpuscular HGB Conc 33 % (32-34); Mean Corpuscular Volume 74 fl (84-94); Monocytes # (Auto) 0.4 K/mm3 (0.0-0.8); Monocytes % (Auto) 6.5 % (0.0-7.3); Platelet Count 295 K/mm3 (140-440); Red Blood Count 4.39 M/mm3 (3.65-5.03); Red Cell Distribution Width 17.2 % (13.2-15.2)
[2017-12-10 15:18] LABS: Mean Corpuscular Hemoglobin 24 pg (28-32)
[2017-12-10 15:20] LABS: Alanine Aminotransferase 12 units/L (7-56); Albumin 3.4 g/dL (3.9-5); BUN/Creatinine Ratio 10; Blood Urea Nitrogen 7 mg/dL (9-20); Hemolysis Index 5; Lipase 23 units/L (13-60)
[2017-12-10 15:27] LABS: INR 1.07 (0.87-1.13)
[2017-12-10 15:28] LABS: Partial Thromboplastin Time 40.8 Sec. (24.2-36.6)
--- NOTE | 2017-12-10 16:46 | Emergency Department Report ---
ED General Adult HPI - General Chief complaint: GI Bleed Stated complaint: BLOODY STOOL Time Seen by Provider: 12/10/17 16:09 Source: patient Mode of arrival: Ambulatory Limitations: No Limitations - History of Present Illness Initial comments: Patient presents to the emergency department with a chief complaint of blood per rectum. Patient states that he was recently discharged from the hospital on Wednesday for a blood clot in his lungs. Patient also states he is not taking his blood thinners. Patient denies any chest pain, abdominal pain, headache. -: Gradual Radiation: non-radiation Severity scale (0 -10): 0 Consistency: constant Improves with: none Worsens with: none Associated Symptoms: denies other symptoms Treatments Prior to Arrival: none - Related Data Previous Rx's Medication Instructions Recorded Last Taken Type Acetaminophen [Acetaminophen TAB] 650 mg PO Q4H PRN #30 tablet 12/06/17 Unknown Rx Apixaban [Eliquis] 10 mg PO Q12HR #60 tablet 12/06/17 Unknown Rx metFORMIN [Glucophage] 500 mg PO BIDDIAB #60 tablet 12/06/17 Unknown Rx Allergies Allergy/AdvReac Type Severity Reaction Status Date / Time No Known Allergies Allergy Verified 03/12/16 14:09 ED Review of Systems ROS: Stated complaint: BLOODY STOOL Other details as noted in HPI Comment: All other systems reviewed and negative Constitutional: denies: chills, fever Eyes: denies: eye pain, eye discharge, vision change ENT: denies: ear pain, throat pain Respiratory: denies: cough, shortness of breath, SOB with exertion, wheezing Cardiovascular: denies: chest pain, palpitations Endocrine: no symptoms reported Gastrointestinal: hematochezia. denies: abdominal pain, nausea, diarrhea Genitourinary: denies: urgency, dysuria Musculoskeletal: denies: back pain, joint swelling, arthralgia Skin: denies: rash, lesions Neurological: denies: headache, weakness, paresthesias Psychiatric: denies: anxiety, depression Hematological/Lymphatic: denies: easy bleeding, easy bruising ED Past Medical Hx - Past Medical History Hx Congestive Heart Failure: No Hx Diabetes: No Hx Psychiatric Treatment: Yes (ANXIETY) Hx Asthma: No Hx COPD: No Additional medical history: MORBID OBESITY, Hx of MS - Surgical History Additional Surgical History: Tonsillectomy - Social History Smoking Status: Never Smoker Substance Use Type: None - Medications Home Medications: Home Medications Medication Instructions Recorded Confirmed Last Taken Type Acetaminophen [Acetaminophen TAB] 650 mg PO Q4H PRN #30 tablet 12/06/17 Unknown Rx Apixaban [Eliquis] 10 mg PO Q12HR #60 tablet 12/06/17 Unknown Rx metFORMIN [Glucophage] 500 mg PO BIDDIAB #60 tablet 12/06/17 Unknown Rx ED Physical Exam - General Limitations: No Limitations General appearance: alert, in no apparent distress - Head Head exam: Present: atraumatic, normocephalic - Eye Eye exam: Present: normal appearance - ENT ENT exam: Present: mucous membranes moist - Neck Neck exam: Present: normal inspection - Respiratory Respiratory exam: Present: normal lung sounds bilaterally. Absent: respiratory distress - Cardiovascular Cardiovascular Exam: Present: regular rate, normal rhythm. Absent: systolic murmur, diastolic murmur, rubs, gallop - GI/Abdominal GI/Abdominal exam: Present: soft, normal bowel sounds. Absent: distended, tenderness - Rectal Rectal exam: Present: deferred, other (patient would not allow rectal exam) - Extremities Exam Extremities exam: Present: normal inspection, pedal edema - Back Exam Back exam: Present: normal inspection - Neurological Exam Neurological exam: Present: alert, oriented X3, CN II-XII intact. Absent: motor sensory deficit - Psychiatric Psychiatric exam: Present: normal affect, normal mood - Skin Skin exam: Present: warm, dry, intact, normal color. Absent: rash ED Course Vital Signs 12/10/17 14:08 Temperature 98.8 F Pulse Rate 94 H Respiratory 16 Rate Blood Pressure 148/85 O2 Sat by Pulse 97 Oximetry ED Medical Decision Making - Lab Data Result diagrams: 12/10/17 14:48 12/10/17 14:48 - Medical Decision Making Upon return to the patient's room to speak to him about a possible rectal exam he tells me that he has a sample in his book bag and pulls out a Ziploc bag with bloody stool present. Critical care attestation.: If time is entered above; I have spent that time in minutes in the direct care of this critically ill patient, excluding procedure time. ED Disposition Clinical Impression: Rectal bleeding Disposition: DC- TO HOME OR SELFCARE Is pt being admited?: No Does the pt Need Aspirin: No Condition: Stable Instructions: Rectal Bleeding (ED) Additional Instructions: return if worse Referrals: PRIMARY MD DUANE [Primary Care Provider] - 3-5 Days [facility] [Outside] - 3-5 Days [facility] [Outside] - 3-5 Days ASHA PAIGE MD [Staff Physician] - 3-5 Days Forms: Accompanied Note Time of Disposition: 19:00
== END 2017-12-10 19:36 | disposition home or self-care (01) ==
LOC: ED 13:49
DX: K62.5 Hemorrhage of anus and rectum (principal); F41.9 Anxiety disorder, unspecified; E66.01 Morbid (severe) obesity due to excess calories; Z90.49 Acquired absence of other specified parts of digestive tract
CPT/HCPCS: 36415; 80053; 83690; 83880; 85025; 85610; 85730; 86850; 86900; 86901; 93005; 93010; 99284

== ENCOUNTER 2018-11-21 17:03 | Inpatient (IN) | payer SELFPAY ==
--- NOTE | 2018-11-21 17:34 | Event Note ---
ED Screening Note ED Screening Note: pt presents with left sided CP that began 40 minutes ago states it feels like a dull ache states he had tingling in the left hand +mild SOB no N/V had swelling in the feet two days ago PMHx: PE last year supposed to be on blood xarelto has not taken in 4 weeks former smoker quit a year ago non drinker no drug use This initial assessment/diagnostic orders/clinical plan/treatment(s) is/are subject to change based on patients health status, clinical progression and re- assessment by fellow clinical providers in the ED. Further treatment and workup at subsequent clinical providers discretion. Patient/guardian urged not to elope from the ED as their condition may be serious if not clinically assessed and managed. Initial orders include: cp protocol
--- NOTE | 2018-11-21 18:14 | XRay Report ---
CHEST 2 VIEWS INDICATION / CLINICAL INFORMATION: Chest Pain. COMPARISON: Chest x-ray 11/29/2017 FINDINGS: SUPPORT DEVICES: None. HEART / MEDIASTINUM: No significant abnormality. LUNGS / PLEURA: No significant pulmonary or pleural abnormality. No pneumothorax. ADDITIONAL FINDINGS: No significant additional findings. IMPRESSION: 1. No acute findings. Signer Name: Malcom Monroe MD Signed: 11/21/2018 6:10 PM Workstation Name: [id number]
[2018-11-21 18:39] LABS: Basophils # (Auto) 0.1 K/mm3 (0.0-0.1); Basophils % (Auto) 1.1 % (0.0-1.8); Eosinophils # (Auto) 0.1 K/mm3 (0.0-0.4); Eosinophils % (Auto) 2.1 % (0.0-4.3); Hematocrit 33.5 % (35.5-45.6); Hemoglobin 10.6 gm/dl (11.8-15.2); Lymphocytes # (Auto) 2.5 K/mm3 (1.2-5.4); Lymphocytes % (Auto) 43.3 % (13.4-35.0); Mean Corpuscular HGB Conc 32 % (32-34); Mean Corpuscular Volume 75 fl (84-94); Monocytes # (Auto) 0.5 K/mm3 (0.0-0.8); Monocytes % (Auto) 7.9 % (0.0-7.3); Platelet Count 274 K/mm3 (140-440); Red Blood Count 4.46 M/mm3 (3.65-5.03); Red Cell Distribution Width 18.3 % (13.2-15.2)
[2018-11-21 18:47] LABS: INR 1.14 (0.87-1.13)
[2018-11-21 18:48] LABS: Partial Thromboplastin Time 33.1 Sec. (24.2-36.6)
[2018-11-21 18:53] LABS: Alanine Aminotransferase 7 units/L (7-56); Albumin 3.7 g/dL (3.9-5); BUN/Creatinine Ratio 10; Blood Urea Nitrogen 7 mg/dL (9-20); Calcium 9.2 mg/dL (8.4-10.2); Hemolysis Index 2
--- NOTE | 2018-11-21 21:46 | Emergency Department Report ---
ED Chest Pain HPI - General Chief Complaint: Chest Pain Stated Complaint: CHEST PAIN Time Seen by Provider: 11/21/18 17:31 Source: patient Mode of arrival: Ambulatory Limitations: No Limitations - History of Present Illness Initial Comments: 33-year-old male with history of morbid obesity, PE, diabetes, presents to ED with complaint of chest pain since yesterday. Patient states pain is left- sided, associated with some shortness of breath and left arm numbness and tingling. Patient states pain is intermittent, first occurrence on yesterday. Patient reports pain today while taking a shower, so he decided to come to the ER. Patient states he was diagnosed with PE approximately 2-3 years ago, however, has not taken Xarelto in approximately one month as he left it in [place]. Patient states he was admitted to the hospital in [place] approximately 2 months ago, and reports that he had an abnormal stress test and abnormal cardiac catherization. However patient states he did not receive any stents and was not placed on any additional medication. Patient states he was only told to continue taking his Xarelto. Patient states that his only medication that he is currently prescribed. Patient denies any leg pain or swelling. MD Complaint: chest pain -: days(s) (1) Onset: during rest Pain Location: left chest Pain Radiation: LUE Severity: moderate Consistency: intermittent Improves With: nothing Worsens With: nothing re: dyspnea. denies: nausea, vomting, diaphoresis Other Symptoms: denies: cough, fever, leg swelling - Related Data Allergies Allergy/AdvReac Type Severity Reaction Status Date / Time No Known Allergies Allergy Verified 03/12/16 14:09 Heart Score - HEART Score History: Moderately suspicious EKG: Normal Age: < 45 Risk factors: > 3 risk factors or hx of atherosclerotic disease Troponin: < normal limit HEART Score: 3 ED Review of Systems ROS: Stated complaint: CHEST PAIN Other details as noted in HPI Comment: All other systems reviewed and negative Constitutional: denies: chills, fever Respiratory: shortness of breath. denies: cough Cardiovascular: chest pain Gastrointestinal: denies: nausea, vomiting Musculoskeletal: other (denies leg pain or swelling) ED Past Medical Hx - Past Medical History Previous Medical History?: Yes Hx Heart Attack/AMI: Yes Hx Congestive Heart Failure: No Hx Diabetes: No Hx Pulmonary Embolism: Yes Hx Psychiatric Treatment: Yes (ANXIETY) Hx Asthma: No Hx COPD: No Additional medical history: MORBID OBESITY, Hx of NM - Surgical History Past Surgical History?: Yes Additional Surgical History: Tonsillectomy - Social History Smoking Status: Former Smoker Substance Use Type: None ED Physical Exam - General Limitations: No Limitations General appearance: alert, in no apparent distress, obese - Head Head exam: Present: atraumatic, normocephalic - Eye Eye exam: Present: normal appearance, PERRL, EOMI - ENT ENT exam: Present: mucous membranes moist - Neck Neck exam: Present: normal inspection - Respiratory Respiratory exam: Present: normal lung sounds bilaterally. Absent: respiratory distress - Cardiovascular Cardiovascular Exam: Present: regular rate, normal rhythm - GI/Abdominal GI/Abdominal exam: Present: soft. Absent: distended, tenderness - Extremities Exam Extremities exam: Absent: pedal edema, calf tenderness - Neurological Exam Neurological exam: Present: alert, oriented X3, CN II-XII intact. Absent: motor sensory deficit - Psychiatric Psychiatric exam: Present: normal affect, normal mood - Skin Skin exam: Present: warm, dry, intact, normal color ED Course Vital Signs 11/21/18 11/21/18 11/21/18 17:34 21:44 21:48 Temperature 98 F Pulse Rate 83 77 Respiratory 18 14 18 Rate Blood Pressure 121/73 O2 Sat by Pulse 100 97 97 Oximetry 11/21/18 11/22/18 11/22/18 22:00 02:14 02:15 Temperature Pulse Rate 76 80 80 Respiratory 16 23 Rate Blood Pressure 148/84 124/74 123/81 O2 Sat by Pulse 97 96 Oximetry 11/22/18 11/22/18 11/22/18 02:30 03:00 03:30 Temperature Pulse Rate 75 74 74 Respiratory 19 20 17 Rate Blood Pressure 130/76 122/80 129/91 O2 Sat by Pulse 95 97 Oximetry ANKITA score - Ankita Score Age > 65: (0) No 3 or more CAD Risk Factors: (0) No 2 or more Angina events in past 24 hrs: (1) Yes Known CAD with more than 50% Stenosis: (0) No Elevated Cardiac Markers: (0) No ST Deviation Greater than 0.5mm: (0) No ED Medical Decision Making - Lab Data Result diagrams: 11/21/18 18:05 11/21/18 18:05 - EKG Data -: EKG Interpreted by Me EKG shows normal: sinus rhythm, axis, intervals, QRS complexes, ST-T waves Rate: normal - EKG Data Interpretation: no acute changes - Radiology Data Radiology results: report reviewed, image reviewed - Medical Decision Making 33-year-old male with chest pain 2-3 days. History of PE, off Xarelto for 1 month. EKG unremarkable. Troponin negative. CT chest negative for acute PE. Patient reports normal cardiac catheterization approximately 2 months ago. The chest pain at this time. Will admit patient for acute chest pain and further workup. - Differential Diagnosis ACS, PE, pneumonia, CHF Critical care attestation.: If time is entered above; I have spent that time in minutes in the direct care of this critically ill patient, excluding procedure time. ED Disposition Clinical Impression: Acute chest pain Disposition: OP ADMIT IP TO THIS HOSP Is pt being admited?: Yes Condition: Stable Time of Disposition: 01:00
--- NOTE | 2018-11-22 00:41 | Cat Scan Report ---
CTA CHEST WITH IV CONTRAST INDICATION: CP, +d-dimer. TECHNIQUE: Axial CT images were obtained through the chest after injection of IV contrast. 3 plane MIP reconstru ctions were produced. All CT scans at this location are performed using CT dose reduction for ALARA b y means of automated exposure control. COMPARISON: None available. FINDINGS: Pulmonary Arteries: No pulmonary emboli. Thoracic Aorta: No acute abnormality. Heart: Normal. Coronary Arteries: No significant calcification. Lungs: No acute air space or interstitial disease. Pleura: No pleural effusion. No pneumothorax. Lymph Nodes: No significant adenopathy. Additional Findings: There are borderline enlarged left axillary lymph nodes. There is a small hiatal hernia. Upper Abdomen: No acute findings. Skeletal Structures: No significant osseous abnormality. IMPRESSION: 1. No CT evidence for pulmonary embolism. 2. No acute pulmonary or pleural findings. 3. Borderline enlarged left axillary lymph nodes. Signer Name: Kirill Aguayo MD Signed: 11/22/2018 12:37 AM Workstation Name: [id number]
[2018-11-22] MEDS ORDERED: MORPHINE IV PRN (01:51)
[2018-11-22] MEDS ORDERED: ZOFRAN IV PRN (01:51)
[2018-11-22] MEDS ORDERED: TYLENOL PR PRN (01:57)
[2018-11-22] MEDS ORDERED: NITROSTAT SL PRN (01:57)
[2018-11-22] MEDS: KCL 10MEQ/100ML 10 MEQ/100 ML BAG IV SCH ×2 (04:24→04:25)
[2018-11-22] MEDS ORDERED: K-DUR PO ONE (04:27)
[2018-11-22 07:16] LABS: Creatine Kinase MB < 1.0 ng/mL (0.0-4.0)
--- NOTE | 2018-11-22 08:08 | History and Physical Report ---
CHIEF COMPLAINT: Chest pain. HISTORY OF PRESENTING ILLNESS: The patient is a 33-year-old male who stated he has been having retrosternal and precordial chest pain going on since yesterday. Pain, according to the patient, radiates to the left arm and is associated with numbness and tingling of the left arm and shortness of breath. Pain is intermittent, according to the patient, and pain is sharp in consistency, and pain is relieved with pain medication. Pain is not affected by movement or breathing. The patient stated he had chest pain about 2 months ago and was admitted at [facility], where they did a stress test that was abnormal and he had cardiac catheterization that showed some blockages, but he was not subjected to any cardiac stent placement and was treated on medications only. He also has had pulmonary embolism in the past and has been taking Xarelto which he stopped taking because he forgot them at [place]. The patient denies any history of dizziness, denies any history of diaphoresis, nausea or vomiting. PAST MEDICAL HISTORY: Significant for morbid obesity, coronary artery disease. Also, the patient has past history of pulmonary embolism and anxiety disorder. The patient denied past medical history of diabetes mellitus. PAST SURGICAL HISTORY: Pertinent for tonsillectomy. FAMILY HISTORY: Reviewed and noncontributory. SOCIAL HISTORY: The patient is a former cigarette smoker but he does not smoke anymore. MEDICATIONS: The patient is on Tylenol 650 mg by mouth every 4 hours as needed for fever and headache. The patient is on Eliquis 10 mg by mouth every 12 hours and metformin 500 mg by mouth twice daily. ALLERGIES: There are no known drug allergies. REVIEW OF SYSTEMS: CONSTITUTIONAL: There is no fever, no chills, no diaphoresis. HEENT: There is no headache or sore throat. CARDIOVASCULAR SYSTEM: Chest pain is present. No orthopnea. RESPIRATORY SYSTEM: Shortness of breath is present. No cough. GASTROINTESTINAL SYSTEM: There is no nausea, no vomiting, no abdominal pain, diarrhea or constipation. NEUROLOGICAL SYSTEM: There is numbness and tingling in the left upper arm, with no dizziness and no altered mental status. MUSCULOSKELETAL SYSTEM: There is no joint pain or swelling. DERMATOLOGICAL SYSTEM: There is no skin rash or itching. GENITOURINARY SYSTEM: There is no dysuria, hematuria or flank pain. Rest of system review is normal. PHYSICAL EXAMINATION: GENERAL: At the time of exam, the patient was found to be alert and oriented x 3, morbidly obese, and not in acute distress. VITAL SIGNS: At the initial time of presentation shows temperature of 98 degrees Fahrenheit, pulse of 83, respirations 18, blood pressure 121/73, O2 sat of 100% on room air. HEENT: Showed pupils to be equal, round, reactive to light and accommodation. Extraocular muscles are intact. NECK: Supple with no JVD or carotid bruit. CARDIOVASCULAR SYSTEM: Showed normal first and second heart sounds with no gallops or murmurs. RESPIRATORY SYSTEM: Showed good air entry on both sides of the lungs with no abnormal breath sounds. GASTROINTESTINAL SYSTEM: Shows abdomen to be full, soft, nontender with no organomegaly or rigidity. NEUROLOGIC: Shows no focal deficit. MUSCULOSKELETAL SYSTEM: Showed no joint swelling or tenderness. DERMATOLOGICAL SYSTEM: Showed no skin rash. GENITOURINARY SYSTEM: Showing no costovertebral angle tenderness. PERTINENT LABORATORY DATA AND IMAGING STUDIES: The patient has CT angiogram of the chest done that shows no evidence of pulmonary embolism, no acute pulmonary or pleural findings and borderline enlarged left axillary lymph nodes. The patient's chest x-ray was unremarkable. Lab result shows CBC with normal white count, low hemoglobin of 10.6, low hematocrit of 33.5. Normal platelet counts with CBC differential showing elevated lymphocyte count of 43.3% and slightly elevated monocyte count of 7.9%. The patient's coagulation studies showed a high D-dimer of 443 that led to the ordering of CT angiogram. The patient's chemistry shows slight decrease in potassium level of 3.5, unremarkable renal function test, and the patient's troponin level was normal and rest of chemistry was unremarkable. DIAGNOSES: 1. Chest pain, rule out myocardial infarction. 2. Morbid obesity. 3. Hypokalemia. PLAN OF CARE: 1. The patient will be admitted to telemetry. 2. The patient will have cardiac enzymes involving troponin, total CK, and CK-MB checked every 6 hours x 2 more levels. 3. The patient will remain n.p.o. for Lexiscan stress test in the morning. 4. The patient will be on IV morphine 2 mg every 3 hours as needed for pain. 5. The patient will be on IV Zofran 4 mg every 8 hours as needed for nausea and vomiting. 6. The patient will be on nitro paste 0.5 inch to anterior chest wall q.i.d. and will also be on Nitrostat 0.4 mg sublingual every 5 minutes as needed for breakthrough chest pain. 7. The patient will be on heparin 5000 units subcutaneous q. 12 hours for DVT prophylaxis. 8. The patient will be on aspirin 325 mg by mouth daily and Tylenol 650 mg rectally every 4 hours as needed for fever and headache. 9. The patient will be on oxygen by nasal cannula at 2 liters per minute. 10. The patient will be on IV KCl 20 mEq in 100 mL normal saline given over 1 hour. JOB# [id number] OCN/NTS
[2018-11-22] MEDS: HEPARIN SUB-Q SCH ×2 (10:41→21:32)
[2018-11-22] MEDS: ASPIRIN PO SCH (10:41)
[2018-11-22] MEDS: NITRO-BID 2% TP SCH ×3 (10:42→17:38)
--- NOTE | 2018-11-22 10:54 | Event Note ---
Date: 11/22/18 Pt reports he underwent stress testing and cardiac catheterization in [place] approx 2 months ago. Medical records requested. Stress test cancelled at this time. Louis HADDAD NP / DR. PEOPLES
[2018-11-22 13:56] LABS: Creatine Kinase MB < 1.0 ng/mL (0.0-4.0)
--- NOTE | 2018-11-22 18:41 | Event Note ---
Date: 11/22/18 Patient is 33-year-old presents with chest pain for greater than 24 hours. Patient has a history of abnormal cardiac catheterization from [place]. Presents this admission with left sided chest pain associated with some shortness of breath. If I wish and this morning patient is chest pain-free. Patient gives history of cardiac cathstent medical management. Has been also relatively low for pulmonary embolism. Recent workup upon this admission with CT angiogram is unremarkable for pulmonary embolism. Patient also has a history of diabetes on metformin also morbid obesity. Plan at this time obtain old records from [place] to establish findings of previous catheterization 2- 3 weeks ago. Until then we'll treat with medical management and a platelet therapy beta john pain control and statin. Patient at present comfortable.
[2018-11-23] MEDS: NITRO-BID 2% TP SCH ×2 (08:05→10:29)
[2018-11-23 09:43] VITALS: BP 123/69
[2018-11-23] MEDS: HEPARIN SUB-Q SCH (10:28)
[2018-11-23] MEDS: ASPIRIN PO SCH (10:29)
--- NOTE | 2018-11-23 10:51 | Discharge Summary ---
Providers - Providers Date of Admission: 11/22/18 01:43 Date of discharge: 11/23/18 Attending physician: ELGIN SIMPSON Cardiology Primary care physician: [facility] Hospitalization Condition: Stable Hospital course: Patient 33-year-old that presents with chest pain for 24 hours associated some left arm numbness been going on for a while. Patient states it happened every time he gets stressed out 80s been very stressed in his living condition at this particular time. Patient when he arrived was chest pain-free. Patient gave history of having abnormal In [place]. Catheterization results will obtain cardiology patient had no coronary artery disease normal coronaries. Patient had a PE was also relatively low follow-up scan was negative for pulmonary embolism. Patient diabetes was suboptimally controlled increased metformin. Morbid obesity exercise. Patient be given Klonopin for stress and anxiety stable for discharge home follow-up primary care physician. Disposition: - TO HOME OR SELFCARE - Discharge Diagnoses (1) Chest pain Status: Acute Comment: Normal coronary spaces chest pain free. Chest tightness secondary to anxiety will follow with primary care physician educated about psychiatric referral and will give Klonopin when necessary for now. (2) Morbid obesity with BMI of 50.0-59.9, adult Status: Acute Comment: Increase exercise and dieting as outpatient. (3) Obstructive sleep apnea Status: Acute Comment: Follow-up pulmonology evaluation for sleep study and adequate use of CPAP. (4) Pulmonary embolism Status: Acute Qualifiers: Comment: Negative for pulmonary embolism will discontinue anticoagulant at this time. Core Measure Documentation - Palliative Care Palliative Care/ Comfort Measures: Not Applicable - Core Measures Any of the following diagnoses?: history only Exam - Constitutional Vitals: Temp Pulse Resp BP Pulse Ox 98.2 F 88 20 123/69 96 11/23/18 09:31 11/23/18 09:31 11/23/18 09:31 11/23/18 09:31 11/23/18 09:31 General appearance: Present: no acute distress, well-nourished - EENT Eyes: Present: PERRL ENT: hearing intact, clear oral mucosa - Neck Neck: Present: supple, normal ROM - Respiratory Respiratory effort: normal Respiratory: bilateral: CTA - Cardiovascular Heart Sounds: Present: S1 & S2. Absent: rub, click - Extremities Extremities: pulses symmetrical, No edema Peripheral Pulses: within normal limits - Abdominal General gastrointestinal: Present: soft, non-tender, non-distended, normal bowel sounds Male genitourinary: Present: normal - Integumentary Integumentary: Present: clear, warm, dry - Musculoskeletal Musculoskeletal: gait normal, strength equal bilaterally - Psychiatric Psychiatric: appropriate mood/affect, intact judgment & insight - Neurologic Neurologic: CNII-XII intact, moves all extremities Plan Activity: no restrictions Diet: low fat, low cholesterol, low carbohydrate Special Instructions: record daily BP diary Follow up with: JOAN WEATHERS MD [Primary Care Provider] - 3-5 Days
== END 2018-11-23 13:35 | disposition home or self-care (01) | DRG 880 ==
LOC: ED 17:03 → 4A 11-22 01:43
PROVIDERS: ADMIT Internal Medicine; ATTEND Internal Medicine
DX: F41.9 Anxiety disorder, unspecified (principal); Z68.43 Body mass index [BMI] 50.0-59.9, adult; E87.6 Hypokalemia; E11.9 Type 2 diabetes mellitus without complications; E66.01 Morbid (severe) obesity due to excess calories; Z86.711 Personal history of pulmonary embolism; I25.2 Old myocardial infarction; Z90.89 Acquired absence of other organs; Z79.84 Long term (current) use of oral hypoglycemic drugs
CPT/HCPCS: 36415; 71046; 71275; 80053; 82550; 82553; 83880; 84484; 85025; 85379; 85610; 85730; 93005; 93010; G0378; J1644; Q9967

== ENCOUNTER 2019-01-14 01:27 | Emergency (ER) | payer SELFPAY ==
[2019-01-14] MEDS ORDERED: ASPIRIN PO ONE (02:31)
--- NOTE | 2019-01-14 03:12 | XRay Report ---
CHEST 1 VIEW 01/14/2019 2:44 AM INDICATION / CLINICAL INFORMATION: Chest Pain. COMPARISON: Chest x-ray 11/21/2018 FINDINGS: SUPPORT DEVICES: None. HEART / MEDIASTINUM: No significant abnormality. LUNGS / PLEURA: No significant pulmonary or pleural abnormality. No pneumothorax. ADDITIONAL FINDINGS: No significant additional findings. IMPRESSION: 1. No acute findings. Signer Name: Maclom Monroe MD Signed: 01/14/2019 3:08 AM Workstation Name: [id number]
[2019-01-14 03:59] LABS: Hematocrit 33.7 % (35.5-45.6); Hemoglobin 10.6 gm/dl (11.8-15.2); Mean Corpuscular HGB Conc 32 % (32-34); Mean Corpuscular Volume 75 fl (84-94); Platelet Count 229 K/mm3 (140-440); Red Blood Count 4.49 M/mm3 (3.65-5.03); Red Cell Distribution Width 17.9 % (13.2-15.2)
[2019-01-14 04:09] LABS: BUN/Creatinine Ratio 11; Blood Urea Nitrogen 8 mg/dL (9-20); Hemolysis Index 4
--- NOTE | 2019-01-14 04:10 | Emergency Department Report ---
<PAM YEN - Last Filed: 01/14/19 05:46> ED Chest Pain HPI - General Chief Complaint: Chest Pain Stated Complaint: CHEST PAIN Time Seen by Provider: 01/14/19 03:52 Source: patient Mode of arrival: Ambulatory Limitations: No Limitations - History of Present Illness Initial Comments: The patient is a 33-year-old [place] male who is presenting with chest pain for the last 3 hours. Patient states some sharp left-sided chest discomfort. Patient states that the pain radiates into his left hand and also has some mild shortness of breath. Patient states he was sitting still when this occurred. Patient denies cough cold congestion fevers chills nausea or vomiting. Patient states he's had this pain before has been seen at several hospitals was never had a stress test. Patient states he is here wanting a stress test. Patient was told at one point he may have had a mild heart attack the patient has no stents. The note from Dr. Baxter last month when the patient was admitted to the hospital the patient reported to him that he had an abnormal cardiac cath several months ago in [place]. Records were obtained which show that the patient had normal coronary arteries. Cardiology saw the patient to cancel stress test Severity scale (0 -10): 8 - Related Data Previous Rx's Medication Instructions Recorded Last Taken Type Aspirin 325 mg PO QDAY tablet 11/23/18 Unknown Rx clonazePAM [ Klonopin] 0.5 mg PO BID PRN #20 tab 11/23/18 Unknown Rx Allergies Allergy/AdvReac Type Severity Reaction Status Date / Time No Known Allergies Allergy Verified 03/12/16 14:09 Heart Score - HEART Score History: Moderately suspicious EKG: Normal Age: < 45 Risk factors: No known risk factors Troponin: < normal limit HEART Score: 1 ED Review of Systems Comment: All other systems reviewed and negative ED Past Medical Hx - Past Medical History Previous Medical History?: Yes Hx Heart Attack/AMI: Yes Hx Congestive Heart Failure: No Hx Diabetes: No Hx Pulmonary Embolism: Yes Hx Psychiatric Treatment: Yes (ANXIETY) Hx Asthma: No Hx COPD: No Additional medical history: MORBID OBESITY, Hx of [place] - Surgical History Past Surgical History?: Yes Additional Surgical History: Tonsillectomy - Social History Smoking Status: Never Smoker Substance Use Type: None - Medications Home Medications: Home Medications Medication Instructions Recorded Confirmed Last Taken Type Aspirin 325 mg PO QDAY tablet 11/23/18 Unknown Rx clonazePAM [ Klonopin] 0.5 mg PO BID PRN #20 tab 11/23/18 Unknown Rx ED Physical Exam - General Limitations: No Limitations General appearance: alert, in no apparent distress, obese, other (patient does his entire history and physical while taking on his phone) - Head Head exam: Present: atraumatic, normocephalic - Eye Eye exam: Present: normal appearance - ENT ENT exam: Present: mucous membranes moist - Neck Neck exam: Present: normal inspection - Respiratory Respiratory exam: Present: normal lung sounds bilaterally. Absent: respiratory distress, wheezes, rales, rhonchi - Cardiovascular Cardiovascular Exam: Present: regular rate, normal rhythm, normal heart sounds. Absent: systolic murmur, diastolic murmur, rubs, gallop - GI/Abdominal GI/Abdominal exam: Present: soft, normal bowel sounds. Absent: distended, tenderness, guarding, rebound - Rectal Rectal exam: Present: deferred - Extremities Exam Extremities exam: Present: normal inspection - Back Exam Back exam: Present: normal inspection - Neurological Exam Neurological exam: Present: alert, oriented X3 - Psychiatric Psychiatric exam: Present: normal affect, normal mood - Skin Skin exam: Present: warm, dry, intact, normal color. Absent: rash ERON score - Eron Score Age > 65: (0) No 3 or more CAD Risk Factors: (0) No 2 or more Angina events in past 24 hrs: (1) Yes Known CAD with more than 50% Stenosis: (0) No Elevated Cardiac Markers: (0) No ST Deviation Greater than 0.5mm: (0) No ED Medical Decision Making - Lab Data Result diagrams: 01/14/19 03:32 01/14/19 03:32 Lab Results 01/14/19 01/14/19 Range/Units 03:32 03:32 WBC 6.2 (4.5-11.0) K/mm3 RBC 4.49 (3.65-5.03) M/mm3 Hgb 10.6 L (11.8-15.2) gm/dl Hct 33.7 L (35.5-45.6) % MCV 75 L (84-94) fl MCH 24 L (28-32) pg MCHC 32 (32-34) % RDW 17.9 H (13.2-15.2) % Plt Count 229 (140-440) K/mm3 Sodium 140 (137-145) mmol/L Potassium 3.4 L (3.6-5.0) mmol/L Chloride 100.3 (98-107) mmol/L Carbon Dioxide 26 (22-30) mmol/L Anion Gap 17 mmol/L BUN 8 L (9-20) mg/dL Creatinine 0.7 L (0.8-1.5) mg/dL Estimated GFR > 60 ml/min BUN/Creatinine Ratio 11 % Glucose 145 H (75-100) mg/dL Calcium 9.0 (8.4-10.2) mg/dL Troponin T < 0.010 (0.00-0.029) ng/mL - EKG Data -: EKG Interpreted by Me EKG shows normal: sinus rhythm, axis, intervals, QRS complexes, ST-T waves - EKG Data Interpretation: normal EKG - Radiology Data Radiology results: report reviewed (CXR WNL) ED Disposition Clinical Impression: Obstructive sleep apnea, Chest pain Disposition: - TO HOME OR SELFCARE Is pt being admited?: No Does the pt Need Aspirin: No Condition: Stable Instructions: Chest Pain (ED) Additional Instructions: During her last hospitalization here at [facility] we were able to obtain the cardiac catheterization report from your visit in [place]. At that time your coronary arteries were open. Please follow-up with cardiology. It is unknown whether a stress test will be deemed necessary since your arteries did not show any signs of closing at this time. Referrals: JOAN WEATHERS MD [Referring] - 3-5 Days Time of Disposition: 05:49 <LOLITA ALEJANDRA - Last Filed: 01/15/19 19:39> Heart Score - HEART Score History: Moderately suspicious EKG: Normal Age: < 45 Risk factors: No known risk factors Troponin: < normal limit HEART Score: 1 - Critical Actions Critical Actions: 0-3 pts:0.9-1.7%risk of adverse cardiac event.Candidate for discharge ED Review of Systems ROS: Stated complaint: CHEST PAIN Other details as noted in HPI ED Course Vital Signs 01/14/19 01/14/19 01/14/19 01:49 03:30 04:20 Temperature 98.4 F 98.2 F Pulse Rate 77 79 81 Respiratory 20 20 20 Rate Blood Pressure 113/54 Blood Pressure 126/79 122/67 [Left] O2 Sat by Pulse 97 98 99 Oximetry 01/14/19 06:20 Temperature Pulse Rate 66 Respiratory 24 Rate Blood Pressure Blood Pressure 135/79 [Left] O2 Sat by Pulse 99 Oximetry - Reevaluation(s) Reevaluation #1: 01/14/19 06:18 The patient is resting comfortably, and in no acute distress. Troponins negative 2. EKG is reviewed, and appreciated. Recent hospitalization, medical records, and cardiology input are appreciated. The patient is at low risk for major adverse cardiac event. The patient is suitable to follow-up as an outpatient. Upon reassessment he is sleeping comfortably in the stretcher, and in no acute distress. ERON score - Eron Score Age > 65: (0) No Aspirin use within the Past 7 Days: (0) No 3 or more CAD Risk Factors: (0) No 2 or more Angina events in past 24 hrs: (0) No Known CAD with more than 50% Stenosis: (0) No Elevated Cardiac Markers: (0) No ST Deviation Greater than 0.5mm: (0) No ERON Score: 0 ED Medical Decision Making - Lab Data Result diagrams: 01/14/19 03:32 01/14/19 03:32 Critical care attestation.: If time is entered above; I have spent that time in minutes in the direct care of this critically ill patient, excluding procedure time. ED Disposition Is pt being admited?: No Does the pt Need Aspirin: No
[2019-01-14 05:42] LABS: Total Cells Counted 100
[2019-01-14 05:48] LABS: Anisocytosis 1+; Hypochromasia Few
[2019-01-14 05:49] LABS: Macrocytosis Few; Ovalocytes Few; Platelet Estimate Consistent w Auto
[2019-01-14 06:25] VITALS: BP 135/79
== END 2019-01-14 06:30 | disposition home or self-care (01) ==
LOC: ED 01:27
DX: G47.33 Obstructive sleep apnea (adult) (pediatric) (principal); R07.89 Other chest pain; F41.9 Anxiety disorder, unspecified; E66.01 Morbid (severe) obesity due to excess calories; Z68.33 Body mass index [BMI] 33.0-33.9, adult; Z86.711 Personal history of pulmonary embolism; Z79.82 Long term (current) use of aspirin; Z90.89 Acquired absence of other organs
CPT/HCPCS: 36415; 71045; 80048; 84484; 85007; 85025; 93005; 93010; 99284

== ENCOUNTER 2019-01-17 00:19 | Emergency (ER) | payer SELFPAY ==
[2019-01-17] MEDS ORDERED: ASPIRIN PO ONE (00:47)
[2019-01-17] MEDS ORDERED: ASPIRIN ONE (00:50)
--- NOTE | 2019-01-17 01:48 | XRay Report ---
CHEST 1 VIEW 01/17/2019 1:02 AM INDICATION / CLINICAL INFORMATION: Chest Pain. COMPARISON: Chest x-ray 01/14/2019 FINDINGS: The right costophrenic angles not included on the chest x-ray. SUPPORT DEVICES: None. HEART / MEDIASTINUM: No significant abnormality. LUNGS / PLEURA: No significant pulmonary or pleural abnormality. No pneumothorax. ADDITIONAL FINDINGS: No significant additional findings. IMPRESSION: 1. No acute findings. Signer Name: Malcom Monroe MD Signed: 01/17/2019 1:43 AM Workstation Name: [id number]
[2019-01-17 03:15] VITALS: BP 142/86
[2019-01-17 03:47] LABS: BUN/Creatinine Ratio 16; Blood Urea Nitrogen 11 mg/dL (9-20); Calcium 9.1 mg/dL (8.4-10.2); Hemolysis Index 6
[2019-01-17 03:48] LABS: Basophils % (Auto) 0.2 % (0.0-1.8); Eosinophils # (Auto) 0.1 K/mm3 (0.0-0.4); Eosinophils % (Auto) 1.8 % (0.0-4.3); Hematocrit 34.7 % (35.5-45.6); Lymphocytes # (Auto) 2.7 K/mm3 (1.2-5.4); Lymphocytes % (Auto) 39.3 % (13.4-35.0); Mean Corpuscular HGB Conc 32 % (32-34); Mean Corpuscular Volume 75 fl (84-94); Monocytes # (Auto) 0.5 K/mm3 (0.0-0.8); Monocytes % (Auto) 7.5 % (0.0-7.3); Platelet Count 246 K/mm3 (140-440); Red Blood Count 4.63 M/mm3 (3.65-5.03); Red Cell Distribution Width 18.1 % (13.2-15.2)
--- NOTE | 2019-01-17 05:45 | Emergency Department Report ---
ED Chest Pain HPI - General Chief Complaint: Chest Pain Stated Complaint: CHEST PAIN Time Seen by Provider: 01/17/19 03:21 Source: patient Mode of arrival: Ambulatory Limitations: No Limitations - History of Present Illness Initial Comments: Mr. Chester is a 33-year-old male with history of sleep apnea, anxiety, pulmonary embolism, severe obesity who presents with intermittent chest pain for the last week. Pain is still episodic. No association with exertion or inspiration. No association with eating. He is followed at [facility]. Currently no pain at this time. He denies vomiting. He denies shortness of breath. 2 months ago in November, Mr. Chester was admitted to our hospitalist service. Ruled out for acute pulmonary embolism and acute cardiac syndrome at that time. MD Complaint: chest pain -: Gradual Onset: during rest Pain Location: left chest Severity: mild Severity scale (0 -10): 7 Quality: dull Consistency: now resolved Improves With: nothing Worsens With: nothing - Related Data Previous Rx's Medication Instructions Recorded Last Taken Type Aspirin 325 mg PO QDAY tablet 11/23/18 Unknown Rx clonazePAM [ Klonopin] 0.5 mg PO BID PRN #20 tab 11/23/18 Unknown Rx Allergies Allergy/AdvReac Type Severity Reaction Status Date / Time No Known Allergies Allergy Verified 03/12/16 14:09 Heart Score - HEART Score History: Slightly suspicious EKG: Normal Age: < 45 Risk factors: 1-2 risk factors Troponin: < normal limit HEART Score: 1 ED Review of Systems ROS: Stated complaint: CHEST PAIN Other details as noted in HPI Comment: All other systems reviewed and negative Constitutional: denies: fever, malaise Respiratory: denies: cough, shortness of breath Cardiovascular: chest pain ED Past Medical Hx - Past Medical History Previous Medical History?: Yes Hx Heart Attack/AMI: Yes Hx Congestive Heart Failure: No Hx Diabetes: No Hx Pulmonary Embolism: Yes Hx Psychiatric Treatment: Yes (ANXIETY) Hx Asthma: No Hx COPD: No Additional medical history: MORBID OBESITY, Hx of [place] - Surgical History Additional Surgical History: Tonsillectomy - Social History Smoking Status: Never Smoker Substance Use Type: None - Medications Home Medications: Home Medications Medication Instructions Recorded Confirmed Last Taken Type Aspirin 325 mg PO QDAY tablet 11/23/18 Unknown Rx clonazePAM [ Klonopin] 0.5 mg PO BID PRN #20 tab 11/23/18 Unknown Rx ED Physical Exam - General Limitations: No Limitations General appearance: alert, in no apparent distress - Head Head exam: Present: atraumatic, normocephalic - Eye Eye exam: Present: normal appearance - ENT ENT exam: Present: mucous membranes moist - Neck Neck exam: Present: normal inspection, full ROM - Respiratory Respiratory exam: Present: normal lung sounds bilaterally. Absent: respiratory distress, wheezes, rales, rhonchi - Cardiovascular Cardiovascular Exam: Present: regular rate, normal rhythm, normal heart sounds. Absent: systolic murmur, diastolic murmur, rubs, gallop - GI/Abdominal GI/Abdominal exam: Present: soft, normal bowel sounds. Absent: distended, tenderness, guarding, rebound - Rectal Rectal exam: Present: deferred - Extremities Exam Extremities exam: Present: normal inspection - Back Exam Back exam: Present: normal inspection - Neurological Exam Neurological exam: Present: alert, oriented X3 - Psychiatric Psychiatric exam: Present: normal affect, normal mood - Skin Skin exam: Present: warm, dry, intact, normal color. Absent: rash ED Course Vital Signs 01/17/19 01/17/19 01/17/19 03:13 03:30 04:00 Temperature 98 F Pulse Rate 79 73 75 Respiratory 12 15 17 Rate Blood Pressure 142/86 142/86 Blood Pressure 142/86 [Left] O2 Sat by Pulse 99 99 95 Oximetry ANKITA score - Ankita Score Age > 65: (0) No Aspirin use within the Past 7 Days: (0) No 3 or more CAD Risk Factors: (0) No 2 or more Angina events in past 24 hrs: (0) No Known CAD with more than 50% Stenosis: (0) No Elevated Cardiac Markers: (0) No ST Deviation Greater than 0.5mm: (0) No ANKITA Score: 0 ED Medical Decision Making - Lab Data Result diagrams: 01/17/19 03:19 01/17/19 03:19 Laboratory Results - last 24 hr 01/17/19 01/17/19 01/17/19 03:19 03:19 03:45 WBC 6.8 RBC 4.63 Hgb 11.0 L Hct 34.7 L MCV 75 L MCH 24 L MCHC 32 RDW 18.1 H Plt Count 246 Lymph % (Auto) 39.3 H Loving % (Auto) 7.5 H Eos % (Auto) 1.8 Baso % (Auto) 0.2 Lymph # 2.7 Loving # 0.5 Eos # 0.1 Baso # 0.0 Seg Neutrophils % 51.2 Seg Neutrophils # 3.5 Sodium 136 L Potassium 3.7 Chloride 98.3 Carbon Dioxide 27 Anion Gap 14 BUN 11 Creatinine 0.7 L Estimated GFR > 60 BUN/Creatinine Ratio 16 Glucose 107 H Calcium 9.1 Troponin T < 0.010 < 0.010 - EKG Data 01/17/19 05:44 EKG obtained 0028 Sinus tachycardia rate 107 bpm prolonged QT interval no ST elevation - Radiology Data Radiology results: report reviewed Chest radiograph: No acute process according to radiology report - Medical Decision Making Mr. Chester presents with atypical chest pain. On my examination heart rate is 68 beats a minute. I do not suspect pulmonary embolism, pericarditis, dissection, acute coronary syndrome. He is discharged home with reassurance. Critical care attestation.: If time is entered above; I have spent that time in minutes in the direct care of this critically ill patient, excluding procedure time. ED Disposition Clinical Impression: Chest pain Disposition: DC-01 TO HOME OR SELFCARE Is pt being admited?: No Does the pt Need Aspirin: No Condition: Good Instructions: Chest Pain (ED) Referrals: PRIMARY CARE, [Primary Care Provider] - 3-5 Days
== END 2019-01-17 04:45 | disposition home or self-care (01) ==
LOC: ED 00:19
DX: R07.89 Other chest pain (principal); I25.2 Old myocardial infarction; F41.9 Anxiety disorder, unspecified; E66.01 Morbid (severe) obesity due to excess calories; Z68.43 Body mass index [BMI] 50.0-59.9, adult; Z86.711 Personal history of pulmonary embolism; Z90.89 Acquired absence of other organs; Z79.899 Other long term (current) drug therapy
CPT/HCPCS: 36415; 71045; 80048; 84484; 85025; 93005; 93010